=== PATIENT | female | born 1970 | race Caucasian/White ===

== ENCOUNTER 2020-09-27 10:05 | Outpatient (CLI) | payer OTHER, SELFPAY ==
--- NOTE | ~2020-09-27 | MM_ITS ---
EXAMINATION: MM screening [facility] BI w corey HISTORY: Screening mammogram TECHNIQUE: Craniocaudal and mediolateral oblique 3-D tomosynthesis images were obtained and synthetic 2-D images were generated. CAD analysis was submitted and interpreted. COMPARISON: 03/23/2016, 02/08/2015, 01/08/2012 BREAST PARENCHYMAL COMPOSITION: There are scattered areas of fibroglandular density. FINDINGS: There is no evidence of suspicious mass, calcification, or architectural distortion to sugg est malignancy in either breast. There has been no suspicious interval change. IMPRESSION: 1. No mammographic evidence of malignancy. 2. Recommend routine screening mammography in one year. BI-RADS Category 1: Negative Reviewed, dictated and finalized at location A.
== END 2020-09-27 10:06 | disposition home or self-care (01) ==
LOC: ANHIMG 10:08
PROVIDERS: PCP Internal Medicine; Visit Provider Obstetrics & Gynecology
DX: Z12.31 Encounter for screening mammogram for malignant neoplasm of breast (principal)
CPT/HCPCS: 77063; 77067

== ENCOUNTER 2022-11-28 13:43 | Outpatient (CLI) | payer OTHER, SELFPAY ==
--- NOTE | ~2022-11-28 | MM_ITS ---
EXAMINATION: MM screening [facility] w [facility] HISTORY: Screening TECHNIQUE: Craniocaudal and mediolateral oblique 3-D tomosynthesis images were obtained and synthetic 2-D images were generated. CAD analysis was submitted and interpreted. COMPARISON: Comparison to multiple prior studies sequentially, with oldest reviewed study dated 01/12. BREAST PARENCHYMAL COMPOSITION: Breast composed of scattered areas of fibroglandular density FINDINGS: There is no evidence of suspicious mass, calcification, or architectural distortion to sugg est malignancy in either breast. There has been no suspicious interval change. IMPRESSION: 1. No mammographic evidence of malignancy. 2. Recommend routine screening mammography in one year. BI-RADS Category 1: Negative Reviewed, dictated and finalized at location A.
== END 2022-11-28 13:44 | disposition home or self-care (01) ==
LOC: ANHIMG 13:46
PROVIDERS: PCP Internal Medicine; Visit Provider Nurse Practitioner Obstetrics & Gynecology
DX: Z12.31 Encounter for screening mammogram for malignant neoplasm of breast (principal)
CPT/HCPCS: 77063; 77067

== ENCOUNTER 2024-06-30 11:36 | Outpatient (CLI) | payer OTHER, SELFPAY ==
--- OUTSIDE RECORDS SUMMARY | 2024-06-30 11:43 | XMS_ITS | Clinical Summary ---
Author Organization [facility] Medical Office Building B Address [address] [place] [id number] Care Team Providers Care Bulk Plant Supervisor Name Role Phone Andrews Kent MD Primary Care Provider [phone] Andrews Kent MD Unavailable [phone] Allergies No known active allergies Medications hydroCHLOROthia zide (HYDRODIURIL) 25 mg tablet Take 1 tablet (25 mg total) by mouth daily 03/03/19 19 Active multivitamin capsule Take 1 capsule by mouth daily Active ascorbic acid, vitamin C, 125 mg tablet,chewable Take by mouth Active meloxicam (MOBIC) 15 mg tablet Take 1 tablet (15 mg total) by mouth daily Active albuterol HFA (PROVENTIL HFA,VENTOLIN HFA,PROAIR HFA) 90 mcg/actuation inhaler Inhale 2 puffs every 6 (six) hours as needed for wheezing 1 each 02/04/20 24 025 Active Additional Information Patient not taking.Reported on 06/15/2024 fosinopriL (MONOPRIL) 40 mg tablet Take 1 tablet (40 mg total) by mouth daily 05/24/19 25 Active fosinopril (MONOPRIL) 20 mg tablet Take 1 tablet (20 mg total) by mouth 3 (three) times a day 025 Discontinu ed(Therapy completed) amoxicillin (AMOXIL) 500 mg tablet/capsuleI ndications:Phar yngitis, unspecified etiology Take 1 tablet/capsule (500 mg total) by mouth 2 (two) times a day for 10 days 20 tablet/capsu le 06/16/19 25 025 Active Problems Problem Noted Date Diagnosed Date Spell of visual disturbance 05/14/2018 Encounters Date Type Department Care Team Description 06/15/2024 5:15 PM CDT Office Visit [facility] [address] [place] [address] Radha Palafox, KELSEA Sore throat (Primary Dx); Pharyngitis, unspecified etiology from Last 3 Months Surgical History Surgery Date Site/Laterality Comments CHOLECYSTECTOMY SECTION TUBAL LIGATION KNEE SURGERY Medical History Medical History Date Comments Hypertension Migraine Family History Medical History Relation Name Comments Hypertension Father Diabetes Mother Hypertension Mother Thyroid cancer Other sibling Relation Name Status Comments Father Mother Other sibling Alive Social History Tobacco Use Types Packs/Day Years Used Date Smoking Tobacco: Former Cigarettes Q uit: 02/11/2003 Smokeless Tobacco: Never Comments No Sex and Gender Information Value Date Recorded Sex Assigned at Not on file Legal Sex Female 2:59 PM CDT Gender Identity Not on file Sexual Orientation Not on file 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 file Not on file Not on file Obstetrics History Last Filed Vital Signs Vital Sign Reading Time Taken Comments Blood Pressure 130/80 06/15/2024 5:09 PM CDT Pulse 80 06/15/2024 5:09 PM CDT Temperature 36.8 C (98.2 F) 06/15/2024 5:09 PM CDT Respiratory Rate 17 06/15/2024 5:09 PM CDT Oxygen Saturation 98% 06/15/2024 5:09 PM CDT Inhaled Oxygen Concentration - - Weight 95.8 kg (211 lb 3.2 oz) 06/15/2024 5:09 P M CDT Height 160 cm (5' 3 ) 06/15/2024 5:09 PM CDT Body Mass Index 37.41 06/15/2024 5:09 PM CDT Plan of Treatment Health Maintenance Due Date Last Done Comments Breast Cancer Screening-Mammogram 1970 Cervical Cancer Screening 1970 Colon Cancer Screening-Colonoscopy 1970 Depression Screening 1970 Hepatitis C Screening 1970 DTaP/Tdap/Td Vaccine (1 - Tdap) 1981 Hepatitis B Screening 1988 Regular Well Visit/Exam 18-64 1988 Zoster Vaccine (1 of 2) 2020 Influenza Vaccine (Season Ended) 2024 Pneumococcal vaccine <65 Aged Out No longer eligible based on patient's age to complete this topic Procedures Procedure Name Priority Date/Time Associated Diagnosis Comments POCT RAPID STREP Routine 06/15/2024 5:18 PM CDT Sore throat from Last 3 Months Results * POCT rapid strep A (06/15/2024 5:18 PM CDT) Rapid Strep A, POC Negative Negative Swab 06/15/2024 5:18 PM CDT Radha Palafox NP POINT OF CARE TEST ORDERAB LES Final Result from Last 3 Months Insurance [facility] [id number] [facility] [id number] Member Subscriber Plan / Payer (Ef fective 2020-Present) Name:Brenda Johansen Member ID:[id number] Relation to Subscriber:Self Name:Brenda Johansen Subscriber ID:[id number] Payer ID:[id number] Type:[employer] HMO/PPO Address: [place] [id number] [place] [id number] Care Teams Bulk Plant Supervisor Relationship Specialty Start Date End Date Andrews Kent MD [address] [place] [address] PCP - General Internal Medicine 05/14/18 Andrews Kent MD [address] [place] [address] Internal Medicine 05/14/18
--- OUTSIDE RECORDS SUMMARY | 2024-06-30 11:43 | XMS_ITS | Continuity of Care Document ---
Author Organization [facility] Address [address] [place] [address] Phone Care Team Providers Care Needle Control Cheniller Name Role Phone CVM, CLINIC Unavailable Unavailable Allergies, Adverse Reactions, Alerts Substance Reaction Status Criticality ERYTHROMYCIN ETHYLSUCCINATE NauseaItching Active No Information Sulfa (Sulfonamide Antibiotics) HivesSwellingDifficulty breathing Active No Inf ormation HYDROCODONE BITARTRATE Nausea Active No In formation acetaminophen Nausea Active No Information Medications Medication Instructions Dosage Effective Dates (start - stop) Status Comments Unknown Herbal Supplement MV w/probiotic-- once daily - Active duloxetine 30 mg capsule,delayed release take 1 capsule by oral route every day 30 MG - Active levothyroxine 75 mcg tablet take 1 tablet by oral route every day 75 MCG - Active flaxseed oil 1,000 mg capsule take 1 capsule by oral route every day 1 capsule - Active triamcinolone acetonide 0.1 % topical cream apply by topical route 2 times every day a thin layer to the affected area(s) as needed 0.00 - Active meloxicam 15 mg tablet take 1 tablet by oral route every day 15 MG - Active famotidine 40 mg tablet take 1 tablet by oral route every day at bedtime 40 MG - Active CALTRATE 600 + D (unknown strength) take 1 tablet by mouth daily Not Available - Active betamethasone dipropionate 0.05 % topical ointment apply by topical route 2 times every day a thin layer to the affected area(s) as needed Not Available - Active amitriptyline 10 mg tablet take 1 to 2 tablet by oral route every day - Active Ambien 10 mg tablet take 1 tablet by oral route every day as needed at bedtime - Active Adderall 20 mg tablet take 1 tablet by oral route 3 times every day - Active Procedures Procedure Date NUC-Cardiolite/Per Dose Nuc-Perf Scan, Mult, W/EF & WM 24 IO-Stress Supervision, Office Stress Tracing Only IO-Stress Intepretation, Office 024 Echo, 2D Complete CTA, W/o Contrast, Calcium Scoring, Tech nical CTA, W/o Contrast, Calcium Scoring, Inte rp EKG With Interp And Report New Pt Office Visit Level 4 ACP Disc And Doc, Surrogate Documented O No Charge No Show Fee-New Patient IO-Stress Interpretation, Hospital IO-Stress Supervision, Hospital 021 IO-Stress Interpretation, Hospital IO-Stress Supervision, Hospital 018 IO-Stress Interpretation, Hospital IO-Stress Supervision, Hospital 013 Advance Directives Directive Yes / No Effective Date File Name No Information Encounters Encounter Description Practice Location Reason(s) For Visit Diagnoses Date Provider Providers Copied on Encounter [facility], [address], [place], [address], [place] tel:[phone] DX Hallie CVM Precordial painFamily history of ischemic heart disease and other diseases of the circulatory systemGastro -esophageal reflux disease without esophagitis CVM CLINIC. [facility]. Referring Provider: Andres Krishnamurthy, [facility] [address], [address]. tel:[phone] [facility], [address], [place], [address], [place] tel:[phone] DX Cardenas CVM Precordial painFamily history of ischemic heart disease and other diseases of the circulatory systemEncoun ter for screening for lipoid disordersHyp othyroidism, unspecified 4 Eduard Campos. [facility], [address], [place], [place], [id number], [place]. tel:[phone] Referring Provider: Andres Krishnamurthy, [facility] [address], [place], [address]. tel:[phone] [facility], [address], [place], [address], [place] tel:[phone] DX Hallie CVM Family history of ischemic heart disease and other diseases of the circulatory systemTobacc o use 4 Reinier Royal. [facility], [address], [place], [place], [id number], [place]. tel:[phone] Referring Provider: Andres Krishnamurthy, [facility] [address], [place], [address]. tel:[phone] [facility], [address], [place], [address], [place] tel:[phone] DX Center CVM No Information 4 Laura Ellison. [facility], [address], [place], [place], [id number], [place]. tel:[phone] Referring Provider: Andres Krishnamurthy, [facility] [address], [place], [address]. tel:[phone] New Pt Office Visit Level 4 [facility], [address], [place], [address], [place] tel:[phone] Cardenas CVM cardiovascul ar evaluation (chief complaint) Precordial chest painFamily history of premature coronary artery diseaseLipid screeningTob acco useGERD without esophagitisH ypothyroidis m 4 Eduard Campos. [facility], [address], [place], [place], [id number], [place]. tel:[phone] Referring Provider: Keisha Clemente, [address] [place], [address]. tel:[phone] [facility], [address], [place], [address], [place] tel:[phone] Cardenas CVM No Information 4 Eduard Campos. [facility], [address], [place], [place], [id number], [place]. tel:[phone] Referring Provider: Keisha Clemente, [address] [place], [address]. tel:[phone] [facility], [address], [place], [address], [place] tel:[phone] Cardenas CVM No Information 4 Eduard Campos. [facility], [address], [place], [place], [id number], [place]. tel:[phone] [facility], [address], [place], [address], [place] tel:[phone] Cardenas CVM No Information 1 Floyd Villarreal. [facility], [address], [place], [place], [id number], [place]. tel:[phone] Referring Provider: Elizabeth Vasquez, [facility] [address] [place] [address], [address]. tel:[phone] [facility], [address], [place], [address], [place] tel:[phone] Center CVM No Information 8 Pilo Alba. [facility], [address], [place], [place], [id number], [place]. tel:[phone] Referring Provider: Elizabeth Vasquez, [facility] [address] [place] [address], [address]. tel:[phone] [facility], [address], [place], [address], [place] tel:[phone] Center CVM No Information 3 Floyd Villarreal. [facility], [address], [place], [place], [id number], [place]. tel:[phone] Referring Provider: Elizabeth Vasquez, [facility] [address] [place] [address], [address]. tel:[phone] [facility], [address] [facility], [place], [address], [place] tel:[phone] Center CVM No Information 3 Quinton Sarkar. [facility] , [address], [place], [place], [id number], [place]. tel:[phone] Referring Provider: Elizabeth Vasquez, [facility] [address] [place] [address], [address]. tel:[phone] Family History Family Member Type Diagnosis Age At Onset Father Problem Depression Mother Problem Hypertension Mother Problem Coronary artery disease Father Problem Hypertension Father Problem Diabetes mellitus Payers Payer name Insurance type Covered constitution party ID Authorbrandona jayna(s) [facility] [id number] Social History Type Description Quantity Date Captured Comments Sex Female Smoking Status No Information Chief Complaint And Reason For Visit No Information Reason For Referral Reason For Referral No Information Plan Of Treatment Date Type Action Status Future Order: Radiology Order Nu clear Stress One Day ([place]), Appointment on: , Collected on: Ordered Future Order: Radiology Order Ec ho Complete ([place]), Appointment on: , Collected on: Ordered Future Order: Radiology Order CT Calcium Score ([place]), Appointment on: , Collected on: Ordered History Of Present Illness Encounter Date Complaint History Of Prese nt Illness cardiovascular evaluation Her Gr andmother of an NE in her late 40s. Her father had a fib. Her Mother has had a long history of heart disease. Her Brother had heart disease in his 40s. 2 months ago, while sitting at her desk, under stress at her desk, she developed a sharp left sided chest discomfort followed by some tingling. It lasted 10 seconds than it resolved. She had some dyspnea and sweats, but no nausea. She has had no significant chest discomfort since then. She denies exertional chest discomfort but has some dyspnea with exertion. She denies palpitations. She has occasional dizziness but denies syncope. She denies HTN, diabetes or hyperlipidemia. She quit smoking 5 years ago. She drinks alcohol occasionally. She lives in [place], [place]. She is a therapeutic recreation specialist in the area. She is single with 2 children. Functional Status Date Functional Assessmen t No Information Instructions Date Instruction Additional Sonnyr emiliano PCP Wellness Visit Assessments Type Assessment Date No Information Patient Care Teams Name Effective Dates (start - stop) Status Members No Information
--- OUTSIDE RECORDS SUMMARY | 2024-06-30 11:43 | XMS_ITS | Continuity of Care Document ---
Author Organization [facility] Address [address] [place] [id number] Phone Care Team Providers Care Gamb Cutter Name Role Phone Ivana ODZIER, Lidia Unavailable Unavailable Allergies, Adverse Reactions, Alerts Substance Reaction Status Criticality Sulfa (Sulfonamide Antibiotics) Active No Information Medications Medication Instructions Dosage Effective Dates (start - stop) Status Comments levothyroxine 100 mcg tablet take 1 tablet by oral route every day 100 MCG - Active Adderall 20 mg tablet take 1 tablet by o ral route 3 times every day before breakfast and at noon 20 MG - Active zolpidem 5 mg tablet take 1 Tablet by or al route every day at bedtime 1 Tablet - Active amitriptyline 10 mg tablet take 1 tablet by oral route 2 times every bedtime 10 MG - Active omeprazole 20 mg capsule,delayed release take 1 capsule by oral route every day before a meal as needed 20 MG - Active Procedures Procedure Date ROUTINE VENIPUNCTURE OFFICE/OUTPATIENT VISIT, NEW DNA ANTIBODY DNA ANTIBODY, SINGLE STRAND NUCLEAR ANTIGEN ANTIBODY RBC SED RATE, NONAUTOMATED ASSAY OF CK (CPK) RHEUMATOID FACTOR, QUANT IMMUNOASSAY, NONANTIBODY CARDIOLIPIN ANTIBODY Advance Directives Directive Yes / No Effective Date File Name No Information Encounters Encounter Description Practice Location Reason(s) For Visit Diagnoses Date Provider Providers Copied on Encounter [facility], [address] [place] [address], [id number], [place] tel:[phone] [facility] New No Information Ivana Murillo. [address] [place] [address], [id number], [place]. tel:[phone] OFFICE/OUTPA TIENT VISIT, NEW [facility], [address] [place] [address], [id number], [place] tel:[phone] [facility] Fibromyalgia syndrome (chief complaint) Fibromyalgia FatigueBody mass index (BMI) 34.0-34.9, adultNicotin e dependence, cigarettes, uncomplicate dSicca syndrome, unspecified 8 Geneva Angle. [address], [place], [id number], [place]. tel:[phone] Referring Provider: [facility] [address] [place] [address], [id number]. tel:[phone] Family History Family Member Type Diagnosis Age At Onset Father Problem (finding) depression Mother Problem (finding) hypertension Father Problem (finding) diabetes melli tus in first degree relative Mother Problem (finding) seizure disorder Brother Problem (finding) Heart disease (Cause Of ) Father Problem (finding) Alive and well Maternal aunt Problem (finding) Heart disease Brother Problem (finding) Drugs (Cause Of ) Maternal aunt Problem (finding) fibromyalgia Brother Problem (finding) Starting to have COPD Daughter Problem (finding) Alive and well Mother Problem (finding) Heart disease Cousin Problem (finding) fibromyalgia Maternal aunt Problem (finding) Alive and well Son Problem (finding) attention defi cit hyperactivity disorder Father Problem (finding) raised blood lipids Paternal grandfather Problem (finding) malignant neoplasm of lung (Cause Of ) Maternal grandmother Problem (finding) Myocardial infa rction Payers Payer name Insurance type Covered libertarian ID Authoriza ticinthia(s) [facility] 12 [id number] Social History Type Description Quantity Date Captured Comments Alcohol Use Details Unknown Caffeine Use Details Unknown Tobacco Use Status Smoking Status No Information Sex Female Chief Complaint And Reason For Visit No Information Reason For Referral Reason For Referral No Information Plan Of Treatment Date Type Action Status Goal Dietary management education , guidance, and counseling completed Referral Referred To: Physical Therapy Ordered: Referrals: Physical Therapy. Evaluate and treat ordered History Of Present Illness Encounter Date Complaint History Of Prese nt Illness Fibromyalgia syndrome The sympto ms began 2 years ago. Pt states fuzzy head, pain points, achiness all the time ~ everywhere, sharp, stabbing pain. No previous treatment. Functional Status Date Functional Assessmen t No Information Instructions Date Instruction Additional Infor emiliano Written information provided on fibromyalgia from the ACR. The natural course of this diagnosis was reviewed. Conservative measures were focused on and include regular exercise, healthy diet and stress reduction. I suggested a referral to PT. Cognitive behavioral therapy may also be beneficial. I suggested visiting the website rheumatology.org as a reference for self management techniques and patient education. Fibromyalgia can be primary or secondary in nature and given report of dry mouth/dry eyes, fatigue and pain, further diagnostic testing will be obtained. She is currently managed with amitriptyline and takes Adderall and zolpidem for chronic insomnia and narcolepsy. Medications for fibromyalgia including lyrica, savella, cymbalta,gabapentin, etc. Narcotics are not recommended.She will RETURN TO CLINIC in 4 weeks but call a few days before the appointment for labs results. If negative, may cancel appointment. Related to Fibromyalgia Dietary management e ducation, guidance, and counseling Related to Body mass index (BMI) 34.0-34.9, adult Assessments Type Assessment Date No Information Patient Care Teams Name Effective Dates (start - stop) Status Members No Information
--- OUTSIDE RECORDS SUMMARY | 2024-06-30 11:43 | XMS_ITS | Continuity of Care Document ---
Author Organization [facility] Address [address] [place] [phone] Phone Care Team Providers Care Nutrition Services Aide Name Role Phone Clau Santiago Unavailable Unavailable Allergies, Adverse Reactions, Alerts Substance Reaction Status Criticality ERYTHROMYCIN ETHYLSUCCINATE Active No Information Sulfa (Sulfonamide Antibiotics) Active No Information HYDROCODONE BITARTRATE Active No In formation acetaminophen Active No Information Medications Medication Instructions Dosage Effective Dates (start - stop) Status Comments cephalexin 250 mg capsule take 250 milligram by oral route post coital - Active patient will call when needed cephalexin 250 mg capsule take 1 capsule by oral route every 24 hours - Active IMPOYZ (unknown strength) Not Available - Active CANELO MAG ZINC-D (unknown strength) Not Available - Active FLAXSEED OIL (unknown strength) Not Available - Active ADDERALL (unknown strength) Not Available - Active DRIZALMA SPRINKLE (unknown strength) Not Available - Active AMITRIPTYLINE HCL (unknown strength) Not Available - Active FAMOTIDINE (unknown strength) Not Available - Active LEVOTHYROXINE SODIUM (unknown strength) Not Available - Active BIOTIN (unknown strength) Not Available - Active MELOXICAM (unknown strength) Not Available - Active AMBIEN (unknown strength) Not Available - Active CALTRATE 600+D PLUS (unknown strength) Not Available - No Longer Active BETAMETHASONE DIPROPIONATE (unknown strength) Not Available - No Longer Active Procedures Procedure Date OV - Established Patient OV - New Patient Urinalysis - Automated Offic/outpt E&m Estab Low-mod 6 Ua Dip Stick/tablet; Auto W/mi 06 Offic/outpt E&m Estab Low-mod 5 Ua Dip Stick/tablet; Auto W/mi 05 Offic Cons New/estab Mod-hi 60 05 Cystourethroscopy (separt Proc 05 Ua Dip Stick/tablet; Auto W/mi 05 Advance Directives Directive Yes / No Effective Date File Name No Information Encounters Encounter Description Practice Location Reason(s) For Visit Diagnoses Date Provider Providers Copied on Encounter OV - Established Patient [facility], [address] [place] [address], [id number], [place] tel:[phone] [facility] Personal history of urinary (tract) infections 5 Jeffy Olguin. [address] [place] [address], [id number] , [place]. tel:[phone] Referring Provider: Garrison Hanks, [address] [place] [address], [id number]. tel:[phone] OV - New Patient [facility] , [address] [place] [address], [id number], [place] tel:[phone] [facility] Urinary tract infection, site not specifiedFrequenc y of micturition 4 Sis Julien. [address] [place] [address], [id number] , [place]. tel:[phone] Referring Provider: Garrison Hanks, [address] [place] [address], [id number]. tel:[phone] [facility] , [address] [place] [address], [id number], [place] tel:[phone] [facility] No Information 4 Walter Candelario. [address] [place] [address], [id number] , [place]. tel:[phone] Offic/outpt E&m Estab Low-mod [facility] , [address] [place] [address], [id number], tel:[phone] [facility] No Information [facility]. [address] [place] [address], [id number] , . tel:[phone] Offic/outpt E&m Estab Low-mod [facility] , [address] [place] [address], [id number], tel:[phone] [facility] No Information [facility]. [address] [place] [address], [id number] , [place]. tel:[phone] Offic Cons New/estab Mod-hi 60 [facility] , [address] [place] [address], [id number], tel:[phone] [facility] No Information [facility] Kristoferasoub. [address] [place] [address], [id number] , . [phone] Referring Provider: Per Clemente, [address] [place], [address]. tel:[phone] Family History Family Member Type Diagnosis Age At Onset No Information Payers Payer name Insurance type Covered republican ID Dieter dorantes(s) [facility] [id number] Social History Type Description Quantity Date Captured Comments Alcohol Use Details No Caffeine Use Details Unknown Tobacco Use Status No Information Smoking Status Former smoker Non-Smoking Tobacco Use Details : No Details Available : No Details Available Sex Female Vital Signs Date / Time: Height Weight BMI Pulse Rate Blood Pressure Temperature Respiratory Rate Body Surface Area Head Circumference Head Circ. Percentile Wt./Jeffery. Percentile BMI percentile Pulse Ox Inhaled Ox 1:25 PM 93.180 kg (205.00 lbs) 31.2 0 kg/m eter (2) Chief Complaint And Reason For Visit No Information Reason For Referral Reason For Referral No Information History Of Present Illness Encounter Date Complaint History Of Prese nt Illness No Information Functional Status Date Functional Assessmen t No Information Instructions Date Instruction Additional Infor mation No Information Assessments Type Assessment Date No Information Patient Care Teams Name Effective Dates (start - stop) Status Members No Information
--- OUTSIDE RECORDS SUMMARY | 2024-06-30 11:43 | XMS_ITS | Data Portability ---
Author Organization [facility] Address [address] [address] Care Team Providers Care Rn Med Surg Name Role Phone GHAZALA BUCHANAN Primary Care Provider Assessment Encounter Date Assessment Date Assessment LastModified by Organization Details LastModified Time 08/24/2020 08/24/2020 healthy female exam patient declines std testing pap done, discussed guidelines mammogram ordered and strongly encouraged contraception-tu bal FU 1 year or prn [email or web address] Not available 08/24/2020 14:15:11 11/15/2022 11/15/2022 Annual gynecological exam performed. Patient will come back in a year unless there are new symptoms. Not available 11/15/2022 14:06:35 04/20/2024 04/20/2024 Annual gynecological exam performed. Patient will come back in a year unless there are new symptoms. [email or web address] Not available 04/20/2024 09:17:43 Plan of Treatment Reminders Order Date Submit Date Provider Last Modified By Organization Details Last Modified Time Details Appointments SURG Hysterosc opy 2024 10:00A Cheo CESPEDES MD Not available Not available Not available Lab None recorded. Referral None recorded. Procedures None recorded. Surgeries hysterosc opy, surgical, with biopsy of endometri um and/or polypecto my (SURG) 2024 025 [id number] [id number] [address], [place], [address], 06/10/2024 15:24:19 Imaging US, pelvis 2024 025 [email or web address], [address], [place], [address], 05/04/2024 22:01:02 US, transvagi nal 2024 025 [email or web address], [address], [place], [address], 05/04/2024 22:01:02 MAMMO, screening , digital, bilateral [email or web address] [facility], [address], [place], [address], 05/05/2024 15:38:59 MAMMO, screening , digital, bilateral [address], [address], [place], [address], 11/15/2022 15:13:45 Medication Orders None recorded. Patient TargetsNo targets recorded. Patient InstructionsNo instructions recorded. Reason for Referral None Reported. Results Created Date Observation Date Name Description Value Unit Range Abnormal Flag Note LastModifiedBy Organization Detail LastModifiedTime 08/25/19 21 08/24/2020 IMAGE GUIDE D PAP AND HPV REGAR DLESS image guided Pap, HPV regardless of Pap result SEE RESULT S BELOW CASE REPOR T: Cytol ogy Gynec ologi chandrika Repor t Case: [id number] Autho jose g g Provi parrish: Lara Acevedo MD Colle cted: 08/24 1423 Order ing Locat ion: [place] Patho logy Recei rosana: 08/25 0046 First Scree n: Jamaal Clemons, CT Speci men: Scree belem Pap - Image d, Cervi x STATE MENT OF ADEQU ACY: Satis facto ry for evalu ation Trans forma tion zone compo nent absen t FINAL DIAGN OSIS: Negat dwaine for Intra epith elial Lesio n or Malig marco a Elect ronic ally karina d by Jamaal Clemons CT on 2020 at 11:36 AM ----- ----- ----- ----- ----- ----- ----- ----- ----- ----- ----- ----- ----- ----- ----- ----- ----- ---- HPV RESUL TS: HPV mRNA E6/E7 : No HPV mRNA Detec michael NOTE: This high risk HPV mRNA assay detec ts fourt een high- risk HPV types (16, 18, 31, 33, 35, 39, 45, 51, 52, 56, 58, 59, 66, 68) witho ut diffe renti ation . CHART ABLE COMME NT: Note: This speci men was revie wed by a Cytot echno logis t and/o r Patho logis t (as indic ated in this repor t) after evalu ation using the Thinp rep Imagi ng Syste m. CLINI CHANDRIKA INFOR MATIO N: Menst rual Statu s: LMP (if appli cable ): 021 Clini chandrika Histo ry/Pr eviou s Pap: Type of Neopl maira (if appli cable ): Other Histo ry: Hormo aron (if appli cable ): PAP EDUCA JAYJAY L NOTE: The Pap Test is a scree belem test with an inher ent false negat dwaine rate. Liqui d-bas e sampl ing may decre ase, but will not elimi evelyn, false negat dwaine resul ts. A negat dwaine resul t does not precl ude the prese nce and/o r devel opmen t of disea se, since the prese nce of abnor mal cells in the sampl e depen ds on the locat ion of the lesio n and sampl ing techn ique. Davey nued regul ar scree belem is the best metho d of cance r preve ntion . If repor michael cytol ogic findi ng do not corre late with physi chandrika and/o r histo rical findi ngs, fur er inves tigat ion is recom thania d, as clini ines martinez nted. Not Available [facility] (Lab) [address], [place], [address], 08/26/2020 12:39:43 04/21/19 25 04/20/2024 IMAGE GUIDE D PAP AND HPV REGAR DLESS image guided Pap, HPV regardless of Pap result SEE RESULT S BELOW CASE REPOR T: Cytol ogy Gynec ologi chandrika Repor t Case: [id number] Autho ramsessonny oanh Provi parrish: Natasha Hills, KELSEA Colle cted: 04/20 1019 Order ing Locat ion: [place] Patho logy Recei rosana: 04/21 0113 First Ly n: Melchor Zelaya, CT Patho logis t: Karri Real MD Speci men: Ly verag Pap - Image d, Cervi x STATE MENT OF ADEQU ACY: Satis facto ry for evalu ation Trans forma tion zone compo nent absen t ----- ----- ----- ----- ----- ----- ----- ----- ----- ----- ----- ----- ----- ----- ----- ----- ----- ---- FINAL DIAGN OSIS: Negat dwaine for Intra epith elireji dennis or Terra strickland ([facility]) . Endom etnaomy jasso nt. Elect charlotte fraire by Karri gibbs MD on 2024 at 1315 CDT ----- ----- ----- ----- ----- ----- ----- ----- ----- ----- ----- ----- ----- ----- ----- ----- ----- ---- HPV RESUL TS: HPV mRNA E6/E7 : No HPV mRNA Detec michael NOTE: This high risk HPV mRNA assay detec ts fourt een high- risk HPV types (16, 18, 31, 33, 35, 39, 45, 51, 52, 56, 58, 59, 66, 68) witho ut diffe renti ation . COMME NT: This speci men was revie wed by a Cytot echno logis t and/o r Patho logis t (as indic ated in this repor t) after evalu ation using the Thinp rep Imagi ng Syste m. CLINI CHANDRIKA INFOR MATIO N: Menst rual Statu s: LMP (if appli cable ): Clini chandrika Histo ry/Pr eviou s Pap: Type of Neopl maira (if appli cable ): Signi fican t Clini chandrika Findi ngs: Other Histo ry: Hormo aron (if appli cable ): PAP EDUCA JAYJAY L NOTE: The Pap Test is a scree belem test with an inher ent false negat dwaine rate. Liqui d-bas ed sampl ing may decre ase, but will not elimi evelyn, false negat dwaine resul ts. A negat dwaine resul t does not precl ude the prese nce and/o r devel opmen t of disea se, since the prese nce of abnor mal cells in the sampl e depen ds on the locat ion of the lesio n and sampl ing techn ique. Davey nued regul ar scree belem is the best metho d of cance r preve ntion . If repor michael cytol ogic findi ng do not corre late with physi chandrika and/o r histo rical findi ngs, furth er inves tigat ion is recom thania d, as clini ines martinez nted. Not Available [facility] (Lab) [address], [place], [address], 04/23/2024 14:19:49 09/28/19 21 09/27/2020 MAMMO , scree belem, bilat eral No observ ation record ed. [address], [place], [address], 11/15/2022 15:11:40 05/05/19 25 05/04/2024 US, pelvi s No observ ation record ed. [email or web address], [place], [address], 05/04/2024 16:13:25 05/05/19 25 05/04/2024 US, trans vagin al No observ ation record ed. [email or web address] [address] [address], [place], [address], 05/04/2024 16:13:34 05/05/19 25 05/04/2024 US, pelvi s No observ ation record ed. [email or web address], [place], [address], 05/06/2024 18:54:23 Result Notes None recorded. Problems Name Problem SNOMED Code Status Onset Date Resolution Date Notes Provider Name and Address Organization Details Recorded Time Hypertensive disorder 33735347 Active 2020 Lara Becker MD [address], [place], [address], [place] [facility] 14:13:22 Body mass index 30+ - obesity 584433966 Active 2020 Lara Becker MD [address], [place], [address], [facility] 14:13:29 Problem Notes None recorded. Procedures Surgical History Date Name Laterality Status Provider Name and Address Organization Details Recorded Time 04/21/19 25 Date of Last Pap Smear completed Alee Cornejo [facility] 05/25/2024 12:42:46 11/12/19 23 Date of Last Mammogram completed Ness Segovia [facility] 04/20/2024 09:27:41 02/11/18 97 Tubal Ligation completed Obdulia Elkins [facility] 08/24/2020 09:36:52 02/11/18 96 Cholecystectomy completed [facility] 08/24/2020 09:36:43 02/11/18 95 delivery completed [facility] 08/24/2020 09:36:33 02/11/18 92 delivery completed [facility] 08/24/2020 09:36:23 Imaging Results Imaging Date Name Status LastModified by Organization Details LastModified Time 09/27/2020 MAMMO, screening, bilateral completed [address], [place], [address], 11/15/2022 15:11:40 05/04/2024 US, pelvis completed [email or web address] [address], [place], [address], 05/04/2024 16:13:25 05/04/2024 [email or web address] [address], [place], [address], 05/04/2024 16:13:34 05/04/2024 US, pelvis completed [email or web address] [address], [place], [address], 05/06/2024 18:54:23 Procedure Notes None recorded. Medical Equipment None Reported. Allergies No known drug allergies Medications Name Sig Start Date Stop Date Status Note LastModified by Organization Details LastModified Time benzonatate 200 mg capsule 04/20 completed Not Available Not Available Not Available meloxicam 15 mg tablet TAKE 1 TABLET BY MOUTH EVERY DAY WITH FOOD 08/24 completed Not Available Not Available Not Available fosinopril 20 mg tablet TAKE 2 TABLETS BY MOUTH EVERY DAY 11/15 completed Not Available Not Available Not Available meloxicam 7.5 mg tablet TAKE 1 TABLET BY MOUTH DAILY NEEDED FOR MILD OR MORE SEVERE PAIN. 04/20 completed Not Available Not Available Not Available amoxicillin 875 mg tablet TAKE 1 TABLET BY MOUTH TWICE A DAY FOR 10 DAYS 11/15 completed Not Available Not Available Not Available fosinopril 40 mg tablet TAKE 1 TABLET BY MOUTH EVERY DAY active Not Available Not Available No t Available diclofenac sodium 75 mg tablet,delay ed release TAKE 1 TABLET BY MOUTH EVERY DAY 11/15 completed Not Available Not Available Not Available hydrochlorot hiazide 25 mg tablet TAKE 1 TABLET BY MOUTH EVERY DAY active Not Available Not Available No t Available methylpredni solone 4 mg tablets in a dose pack 04/20 completed Not Available Not Available Not Available albuterol sulfate HFA 90 mcg/actuatio n aerosol inhaler 04/20 completed Not Available Not Available Not Available Vitamin C active Not Available Not Salena ilable Not Available Vitals Date Recorded Body height Systolic blood pressure Diastolic blood pressure Systolic blood pressure Diastolic blood pressure Provider Name and Address Organization Details Last Updated DateTime 162.56 cm 148 mm[Hg] 108 mm[Hg] 138 mm[Hg] 80 mm[Hg] Obdulia Elkins [facility] 11:02:33 Date Recorded Body mass index (BMI) Body weight Provider Name and Address Organization Details Last Updated DateTime 08/24/2020 39.8 kg/m2 868513.43 g Lara Becker MD [address], [place], [address], [facility] 08/24/2020 14:12:57 Date Recorded Body height Body mass index (BMI) Body weight Provider Name and Address Organization Details Last Updated DateTime 11/15/2022 162.56 cm 39.1 kg/m2 414267.06 g Alee Cornejo [facility] 11/15/2022 14:06:48 Date Recorded Systolic blood pressure Diastolic blood pressure Provider Name and Address Organization Details Last Updated DateTime 11/15/2022 130 mm[Hg] 74 mm[Hg] Elizabeth Foote [facility]- [address], [place], [address], [facility] 11/15/2022 15:10:55 Date Recorded Body height Body mass index (BMI) Body weight Systolic blood pressure Diastolic blood pressure Provider Name and Address Organization Details Last Updated DateTime 04/20/2024 162.56 cm 36 kg/m2 59358.96 g 156 mm[Hg] 85 mm[Hg] Ness Segovia [facility] 09:25:16 Date Recorded Body height Body mass index (BMI) Body weight Systolic blood pressure Diastolic blood pressure Provider Name and Address Organization Details Last Updated DateTime 05/25/2024 162.56 cm 36.9 kg/m2 73154.36 g 152 mm[Hg] 82 mm[Hg] Alee Cornejo [facility] 5 12:42:27 Social History Question Answer Notes LastModified by [employer] Details LastModified Time Tobacco Smoking Status Never Smoker Obdulia Elkins indu, [facility] 08/24/2020 10:54:31 In The 14 Days Before Symptom Onset, Have You Had Close Contact With A Laboratory-confirm ed COVID-19 While That Case Was Ill? No Information n ot available 11/15/2022 In The 14 Days Before Symptom Onset, Have You Had Close Contact With A Person Who Is Under Investigation For COVID-19 While That Person Was Ill? No Information not available 11/15/2022 Have You Been To An Area Known To Be High Risk For COVID-19? No Information not available 11/15/2022 Have You Ever Been Counseled For Unhealthy Alcohol Use? No Information not available 08/24/2020 Has Tobacco Cessation Counseling Been Provided? No Information not available 08/24/2020 Sex: Unknown Functional Status Question Answer Note LastModified by [employer] Details LastModified Time Do you use any illicit or recreational drugs? No Information not available 08/24/2020 Do you or have you ever used any other forms of tobacco or nicotine? No Information not available 08/24/2020 What is your level of alcohol consumption? Occasional Information not available 08/24/2020 Mental Status None recorded. Family History Relationship Description Onset Age of this Age Resolved Age Notes LastModified by Organization Details LastModified Time Father No current problems or disability Not available 05/25 12:43:05 Mother No current problems or disability Not available 05/25 12:43:05 Medical History Condition Response Allergies (Food, seasonal, environmental ) N Other N Breast Cancer N Drug/Latex Allergies/Reactions N Blood Transfusion N Dermatologic Disorders N Lung Disease N Defects or Inherited Disease N Breast Problem N Gestational Diabetes N Hematologic disorders N Anesthesia Complications N History of STI N Deep Vein Thrombosis N Polycystic ovary syndrome N Anxiety Disorder N Autoimmune disease N Arthritis N Infertility N Polyps N Acid Reflux (GERD) N History of abnormal pap N Cancer N Stroke N Varicosities N Neurologic/Epilepsy N Endometriosis N High Cholesterol N Headaches N Fibromyalgia N Kidney Disease N Heart Problems N Kidney or Bladder Problems N Thyroid Problems N GI Problems N Eating Disorder N Anemia N Art (IVF or FET) N Psychiatric Illness N Ovarian Cancer N Diabetes N Pulmonary (TB, Asthma) N Hepatitis/Liver Disease N No Past Medical History N Eczema N Urinary Tract Infection N Abuse/Domestic Violence N Asthma N Trauma/Violence N Depression/ depression N Heart Disease N Pre-Eclampsia N Hypertension Y Osteoporosis N Thrombophilias N Gynecological History Statement/Question Response Abnormal Pap N Date of Last Mammogram 11/11/2022 Date of LMP 04/13/2024 STIs/STDs N HPV Vaccine N Duration of Flow (days) 5 Current Control Method Tubal Ligat ion Date of Last Colonoscopy Sexually Active? Y Menses Monthly N Date of Last Pap Smear 04/20/2024 Sexual Problems? N LMP Approximate Obstetrics History GPAL:G 2 P 2 0 0 2 Type Value Full Term 2 Living 2 Total 2 Past Encounters Encounter ID Performer Location Encounter Start Date Encounter Closed Date Diagnosis/Indication Diagnosis SNOMED-CT Code Diagnosis ICD10 Code Diagnosis Note [id number] Lara Becker MD [facility] [address] [address] 08/24/2020 10:45:48 08/25/2020 14:07:46 Gynecologic examination 53050706 Z01.419 Z11.51 [id number] [facility] [address] [address] 11/15/2022 13:57:09 11/15/2022 15:13:45 Gynecologic examination 77633396 Z01.419 Take Calcium with Vitamin D 12-1500mg daily. Do monthly self breast exams. It is advised to get annual flu shot in the fall and she could obtain at [facility] or [facility] care clinic. If you haven't received the Tdap vaccine in the last 10 years you should obtain one as well. Have mammogram yearly, bone density every 2-3 years and colonoscop y every 5-10 years depending on findings and history. Engage in daily exercise of low impact aerobic exercise 45-60 minutes 4-5 times weekly. Avoid tobacco and illicit drugs as well as using moderation with alcohol intake less than 1-2 8 oz beverages daily. This lifestyle behavior pattern will lead to less health conditions and longer life span. If BMI greater than 25 weight watchers or dietary consult advised. Questions have been answered. Patient appears to understand instructio ns, but if you have any further questions call or respond to this email Pap/hpv arlin 2023 unless otherwise indicatedS TD Screen declinedGe netic Screen discussedC olon Screen utd pcpDexa Screen naRoutine Labs utd pcp Screening mammography 24 373576 Z12.31 [id number] YFN Navarro [facility] [address] [address] 04/20/2024 09:10:17 04/20/2024 09:47:14 Gynecologic examination 86227674 Z01.419 WWEPap - done todaySTI screen - declinedMa mmogram - order givenColon cancer screening - cologuard 2023/UTDDe xa - n/aRoutine labs - PCPBP precaution s discussed, encouraged PCP f/uRTC in 1 yr or sooner if needed Do monthly self breast exams.It is advised to get annual flu shot in the fall and she could obtain at local pharmacy. If you haven't received the Tdap vaccine in the last 10 years you should obtain one as well.Have mammogram yearly, bone density every 2-3 years and stay up to date on colon cancer screening. Engage in regular exercise. Avoid tobacco and illicit drugs. This lifestyle behavior pattern will lead to less health conditions and longer life span. If BMI greater than 25 dietary consult advised.Qu estions have been answered. Screening for malignant neoplasm of breast 221407014 Z12.39 [id number] Navid Cespedes MD [facility] [address] [address] 05/04/2024 09:53:18 05/04/2024 10:48:21 Irregular periods 32033626 N92.6 [id number] Navid Cespedes MD [facility] [address] [address] 05/25/2024 12:25:10 05/25/2024 13:07:22 Abnormal uterine bleeding 5349979697 9100 N93.9 Endometrial polyp 692923 1091 N84.0 patient is a 53-year-ol d female with abnormal uterine bleeding. She is irregularl y irregular bleeding it varies in amounts. She was evaluated with pelvic ultrasound . She has a endometria l polyp. We talked about treatment options in the evaluation of endometria l polyp and abnormal bleeding. We agreed to perform hysterosco py D and C with possible polypectom y. The patient understand s the procedure. The procedure was described to the patient in great detail. the patient also understand s the risks. The risks were also explained in detail. She understand s that injuries May occur during surgery. She understand s these injuries can result in hospitaliz ation, more surgery, and severe illness. She understand s there is risk of hemorrhage and infection. Health Concerns Section Related Observation LastModified by Organization Detai ls LastModified Time None Recorded Concern Status LastModified by Organization Details LastModified Time None Recorded Advance Directives Directive None Recorded Payers Encounter Date Sequence Insurance Name Policy Number Policy Parrish Covered Member ID Parrish Member ID Guarantor Name 08/24/2020 1 [employer] - DOS PRIOR TO 20 - [facility] [employer] [id number] [id number] [address] 11/15/2022 1 [employer] - [facility] [employer] [id number] [id number] [address] 04/20/2024 1 [employer] [facility] [employer] [id number] [id number] [address] 05/04/2024 1 [employer] [facility] [employer] [id number] [id number] [address] 05/25/2024 1 [employer] [facility] [employer] [id number] [id number] [address] Notes Date Note Type Note Provider Name and Address Organization Details Recorded Time 1 text/htm l Patient is a 49yo who presents for an annual exam. last pap-2017, all normal mammogram- 2017 sexually active-y contraception-tubal seatbelts-y exercise-some depression-denies domestic violence-denies tobacco-n concerns-none Lara Becker MD [address], [place], [address], [facility] 08/24/2020 14:15:32 3 text/htm l Annual Dip Filler Post-MenopausalReported bypatient.Menopausal Symptoms:no menopausal symptoms; normal vaginal lubrication Vaginal Bleeding:history of menopause having occurred; no history of post menopausal bleeding Urinary Symptoms:no hematuria; no incontinence; no nocturia; no urinary frequency Vulva:no genital lesion; no vulvar atrophy Vagina:normal vaginal discharge; no vaginal atrophy Breast:no breast lump; no nipple discharge; no breast pain Sexual Complaints:no sexual complaints Psychological Symptoms:no depression; no anxiety Preventive Measures:encourage regular mammograms starting age 40; encourage self breast examination; encourage regular exercise; encourage no tobacco use; needs to schedule mammogram; history of recent colonoscopy YFN Masterson- [address], [place], [address], [facility] 11/15/2022 15:13:22 5 text/htm l Annual GYNReported bypatient.Menstrual cycle:Perimenopausal Urinary symptoms:No hematuria; No incontinence Vulva:No genital lesion Vagina:Normal vaginal discharge Breast:No breast pain; No breast lump; No nipple discharge Sexual complaints:No sexual complaints; No pain during intercourse; Normal libido Menopausal Symptoms:No menopausal symptoms; Normal vaginal lubrication Psychological symptoms:No depression; No anxiety; No PMDD Preventive measures:Encourage self breast examination; Encourage regular exercise; Encourage no tobacco use; Encourage regular mammograms starting age 40Notes:53yo wweno h/o abnormal papsperimenopausallast pap 2020 - nilm, HPV (-)mammogram last ologuard done 2023 YFN Navarro [address], [place], [address], [facility] 04/20/2024 09:45:58 5 text/htm l patient is a 53-year-old female with abnormal uterine bleeding. She is irregularly irregular bleeding it varies in amounts. She was evaluated with pelvic ultrasound. She has a endometrial polyp. We talked about treatment options in the evaluation of endometrial polyp and abnormal bleeding. We agreed to perform hysteroscopy D and C with possible polypectomy. The patient understands the procedure. The procedure was described to the patient in great detail. the patient also understands the risks. The risks were also explained in detail. She understands that injuries May occur during surgery. She understands these injuries can result in hospitalization, more surgery, and severe illness. She understands there is risk of hemorrhage and infection. Navid Cespedes MD [address], [place], [address], [facility] 05/25/2024 13:06:57 OBGyn Episode Ob Episode Information Episode Created Date Number of Fetuses Patient Bloodtype Patient rh Status Prepregnancy Weight lbs Domestic Partner Domestic Partner Phone Father Name Log Cooker Status 08/25/19 21 1 CLOSED Fetus Data First Name Last Name Admitted to NICU Weight (g) Sex Living Outcome Pediatric Complications Fetus ID Race Codes Race Delivery Type 4195.72 6 F Full Term [id number] Primary Abrahan Calculation Initial Abrahan Date Initial Exam Date Initial Exam Provider Initial Ultrasound Date Last Menstrual Period Date Ultra Sound Weeks Gestation 0 Eighteen To Twenty Week Abrahan Update Ultra Sound Date Fundal Height At [facility] Quickening Date Ultra Sound Latest Weeks Gestation Final Abrahan Confirmed By Final Abrahan Confirmed Date Final Abrahan Date Ultra Sound Latest Days Gestation 0 0 Menstrual History Last Menstrual Date Menses Monthly On Bcp Conception Prior Menses Frequency Hcg Plus Date Menarche Onset Age Delivery Information Delivery Date Delivery Type Labor Anesthesia Weeks Gestation Incision Type Labor Labor Length Hrs Delivered By Post Complications Tubal Sterilization Discharge Date Comments 5 Discharge Information Feeding Method Contraceptive Method Maternal HG B and HCT Levels Ob Episode Information Episode Created Date Number of Fetuses Patient Bloodtype Patient rh Status Prepregnancy Weight lbs Domestic Partner Domestic Partner Phone Father Name Log Cooker Status 08/25/19 21 1 CLOSED Fetus Data First Name Last Name Admitted to NICU Weight (g) Sex Living Outcome Pediatric Complications Fetus ID Race Codes Race Delivery Type 3883.65 [id number] F Full Term [id number] Primary Abrahan Calculation Initial Abrahan Date Initial Exam Date Initial Exam Provider Initial Ultrasound Date Last Menstrual Period Date Ultra Sound Weeks Gestation 0 Eighteen To Twenty Week Abrahan Update Ultra Sound Date Fundal Height At [place]mbil Quickening Date Ultra Sound Latest Weeks Gestation Final Abrahan Confirmed By Final Abrahan Confirmed Date Final Abrahan Date Ultra Sound Latest Days Gestation 0 0 Menstrual History Last Menstrual Date Menses Monthly On Bcp Conception Prior Menses Frequency Hcg Plus Date Menarche Onset Age Delivery Information Delivery Date Delivery Type Labor Anesthesia Weeks Gestation Incision Type Labor Labor Length Hrs Delivered By Post Complications Tubal Sterilization Discharge Date Comments 2 Discharge Information Feeding Method Contraceptive Method Maternal HG B and HCT Levels
--- OUTSIDE RECORDS SUMMARY | 2024-06-30 11:43 | XMS_ITS | Continuity of Care Document ---
Author Organization [facility] Address [address] [place] [address] Phone Care Team Providers Care Chlorobutadiene Scrubber Operator Name Role Phone Franc Anderson MD, MD Unavailable Unavailable Allergies, Adverse Reactions, Alerts Substance Reaction Status Criticality hydrocodone Active No Information Sulfa (Sulfonamide Antibiotics) hives Active No Information Medications Medication Instructions Dosage Effective Dates (start - stop) Status Comments flaxseed oil 1,000 mg capsule take 1 capsule by oral route 2 times every day 1 capsule - Active LITTLE REMEDIES COUGH-IMMUNE (unknown strength) Not Available - Active ANJESO (unknown strength) Not Available - Active amitriptyline 10 mg tablet take 1 tablet by oral route every day 10 MG - Active multivitamin capsule take 1 capsule by oral route every day - Active VITAMIN D3 (unknown strength) Not Available - Active VITAMIN E (unknown strength) Not Available - Active PAPAYA ENZYME (unknown strength) Not Available - Active MAGNESIUM (unknown strength) Not Available - Active BIOTIN (unknown strength) Not Available - Active FISH OIL (unknown strength) Not Available - Active ADDERALL (unknown strength) Not Available - Active AMBIEN (unknown strength) Not Available - Active OMEPRAZOLE (unknown strength) Not Available - Active SYNTHROID (unknown strength) Not Available - Active Refresh Optive Advanced (PF) 0.5 %-1 %-0.5 % eye drops in dropperette 1 drop 4 times per day both eyes - No Longer Active Refresh Optive 1 %-0.9 % eye gel drops 1 drop at bedtime both eyes - No Longer Active DYANAVEL XR (unknown strength) Not Available - No Longer Active VITAMIN B-12 (unknown strength) Not Available - No Longer Active Procedures Procedure Date OFFICE/OUTPATIENT VISIT, EST DRAINAGE OF HEMATOMA/FLUID REFRACTION EYE EXAM & TREATMENT REFRACTION EYE EXAM & TREATMENT REFRACTION EYE EXAM & TREATMENT OFFICE/OUTPATIENT VISIT, EST OFFICE/OUTPATIENT VISIT, NEW Advance Directives Directive Yes / No Effective Date File Name No Information Encounters Encounter Description Practice Location Reason(s) For Visit Diagnoses Date Provider Providers Copied on Encounter OFFICE/OUTPA TIENT VISIT, EST [facility], [address] [place] [address], [id number] tel:[phone] JARROD Omer cyst RUL 3 month(s) (chief complaint) Benign neoplasm of skin of right upper eyelid 202 0 Justin Bruner. [facility], [address] [place] [address], [id number]. tel:[phone] Other Provider: Hiren Mendez OD, [address], [id number]. tel:[phone] erring Provider: Hiren Mendez OD, [address], [address]. 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 [facility], [address] [place] [address], [id number]. tel:[phone] Referring Provider: Hiren Mendez OD, [address], [id number]. tel:[phone] [facility], [address] [place] [address], [place], [place], [id number] tel:[phone] [place]OD [place] PresbyopiaDry eye syndrome of bilateral lacrimal glands 6 Alberto Reed. [facility], [address] [place] [place], [id number]. tel:[phone] [facility], [address] [place], [id number] tel:+ [phone] JARROD [place] PresbyopiaPresb yopiaDiabetes Mellitus Type 2, Uncomplicated 5 Alberto Reed. [facility], [address] [place], [id number]. tel:[phone] [facility], [address] [place], [id number] tel:+ [phone] [place]ARROD [place] Presbyopia 4 Cayetano Denny. [facility], [address] [place], [id number]. tel:[phone] [facility], [address] [place], [id number] tel:+ [phone] [facility]ARROD [place] No Information 4 Ines Campos. [facility], [facility] [place], [id number]. tel:[phone] OFFICE/OUTPA TIENT VISIT, [facility], [address] [place], [id number] tel:+ [phone] JARROD [place] Superficial injury of cornea 1 Roselia Keith. [facility], [address] [place], [id number]. tel:[phone] OFFICE/OUTPA TIENT VISIT, NEW [facility], [address] [place], [id number] tel:+ [phone] JARROD Omer Pain in or around eyeSuperficial injury of cornea 2201 1 Alberto Reed. [facility], [address] [facility] [place], [id number]. tel:[phone] Family History Family Member Type Diagnosis Age At Onset Paternal grandmother Problem (finding) cataract Father Problem (finding) cataract Paternal grandfather Problem (finding) malignant neopl asm of lung Payers Payer name Insurance type Covered republican ID Authoriza tion(s) [facility] [id number] Social History Type Description Quantity Date Captured Comments Alcohol Use Details Caffeine Use Details Unknown Tobacco Use Status Current non-smoker Smoking Status Former smoker Non-Smoking Tobacco Use Details : No Details Available : No Details Available Sex Female Chief Complaint And Reason For Visit From encounter dated '07/07/2019 15:20'. cyst RUL 3 month(s) (chief complaint) Reason For Referral Reason For Referral No Information History Of Present Illness Encounter Date Complaint History Of Prese nt Illness cyst The 48 year old presents for evaluation of cyst in the RUL. It started about 3 month(s) ago. The symptom is constant. The condition is worsening. Patient notes it is sore to touch and she can feel it when she blinks. Patient notes this is almost in the same spot that her last one was in. 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 - Discussed Hidradenomas are blocked sweat glands that fill with fluid. They can have a little blood in them to give them a darker color. These are benign lesions, not cancerous. Can rashard in office to drain; will aim for a blood vessel to help close the pore down. These can come back. It's okay to leave alone, it will not hurt the eye. This could stay the same size or continue to grow. If bothersome then can rashard, if patient not bothered okay to wait. Patient understands and elects to proceed. 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 Expressed contents with qtips. Patient tolerated well without complications. Will be completely healed in 5-7 days. 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 - Discussed findings with patient. Patient has significant dry eye OU Recommend Inflammadry and tear lab next appt. Recommend AT's 1 drop OU 3-4 times daily. Also recommend Flax seed oil daily. Discusssed possibly starting Restasis, will decide at the next appt. No tears 2 hours prior to the dry eye eval Related to Dry eye syndrome, bilateral Presbyopia OU Condit ion: established, stable. - updated glasses script given today Related to Presbyopia Presbyopia OU Condit ion: established, stable. - Educational materials provided: Discussed diagnosis with patient, new glasses rx given. Stable exam and will continue to monitor. 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 Related to Presbyopia Diabetes Type II OU Condition: new prob, no addtl w/u needed. - Discussed exam, patient has healthy eyes, no diabetic damage seen today OU. Stressed blood sugar/blood pressure control to reduce risk of future progression. Eyes appear healthy, no CHANNEL OPENER seen today. Will cont to monitor. Related to Diabetes Type II Follow up - Return i n 1 year with Brianna Dominguez MD for Complete. Related to Presbyopia Follow up - Return i n 1-2 with Eduin Monteiro OD for Complete. Related to Presbyopia Presbyopia OU Condit ion: new prob, no addtl w/u needed. - Reading glasses ok, +1.00 DS. Call with vision changes. Related to Presbyopia Assessments Type Assessment Date assessment Benign neoplasm of skin of right upper eyelid impression Benign neoplasm of s kin of right upper eyelid: D23.111 Right. Condition: new problem, addtl w/u needed Patient Care Teams Name Effective Dates (start - stop) Status Members No Information
--- OUTSIDE RECORDS SUMMARY | 2024-06-30 11:43 | XMS_ITS | Referral Summary ---
Author Organization [facility] Address [address] [place] [address] Care Team Providers Care Business Systems Administrator Name Role Phone Andrews Kent MD Primary Care Provider [phone] Andrews Kent MD Unavailable [phone] Encounters Date Type Department Care Team Description 06/15/2024 5:15 PM CDT Office Visit [facility] [place] [address] [place] [address] Radha Palafox, KELSEA Sore throat (Primary Dx); Pharyngitis, unspecified etiology from Last 3 Months Allergies No known active allergies Medications hydroCHLOROthia [...] Diagnosed Date Spell of visual disturbance 05/14/2018 Social History Tobacco Use Types Packs/Day Years [...] file Not on file Not on file Last Filed Vital Signs Vital Sign Reading [...] 06/15/2024 5:09 PM CDT Plan of Treatment Not on file Procedures Procedure Name Priority Date/Time Associated Diagnosis Comments POCT RAPID STREP Routine 06/15/2024 5:18 PM CDT Sore throat from Last 3 Months Results * POCT rapid strep A (06/15/2024 5:18 PM CDT) Rapid Strep A, POC Negative Negative Swab 06/15/2024 5:18 PM CDT Radha FernandoIna Palafox SLEEPING CAR CONDUCTOR POINT OF CARE TEST ORDERAB LES Final Result from Last 3 Months Insurance [facility] [id number] [facility] [id number] Care Teams Business Systems Administrator Relationship Specialty Start Date End Date Andrews Kent MD [address] [place] [address] PCP - General Internal Medicine 05/14/18 Andrews Kent MD [address] [place] [address] Internal Medicine 05/14/18
[2024-06-30 12:19] LABS: Anion Gap 7 mmol/L (4-12); Blood Urea Nitrogen 20 mg/dL (7-17); Calcium 9.1 mg/dL (8.4-10.2); Carbon Dioxide 32 mmol/L (22-30); Chloride 99 mmol/L (98-107); Estimated Glomerular Filt Rate > 60; Glucose 91 mg/dL (65-110); Potassium 3.8 mmol/L (3.4-5.0); Sodium 138 mmol/L (137-145)
== END 2024-06-30 11:37 | disposition home or self-care (01) ==
LOC: ANHSURGERY 11:39
PROVIDERS: Anesthesiology; PCP Internal Medicine; Visit Provider Obstetrics & Gynecology
DX: R60.9 Edema, unspecified (principal)
CPT/HCPCS: 36415; 80048

== ENCOUNTER 2024-07-07 00:43 | Day surgery (SDC) | payer OTHER, SELFPAY ==
[2024-06-25 08:37] VITALS: BMI 37.5
--- NOTE | 2024-06-25 08:46 | PC.NURSE ---
Report to the Outpatient Waiting Room, entrance under the green pavilion located off [facility], at time _0800_ on date _07/07/24. Planned Procedure Time: _1000_.? Time changes happen often and if your time is changed the preop area will call you the afternoon before. - You and your visitor will be asked to self-screen and do not enter if you have any COVID symptoms. Please call surgeon if you need to reschedule. - A mask is optional within the hospital at this time. Patients may have clear liquids (water, carbonated beverages, clear teas, apple juice) until 3 hours prior to surgery with a maximum of 20 ounces. - No food from midnight until time of surgery and no smoking, or chewing tobacco (or any form of nicotine). No chewing gum, candy or mints. - Infants may have breast milk until 4 hours before surgery, infant formula 6 hours prior to surgery. - Children will be allowed to drink immediately following surgery.? If applicable, please bring a bottle or sippy cup to assist with drinking. Juice, water, soda, and popsicles are readily available.? For infants on formula, please bring formula the day of surgery.? Pacifiers are allowed. Take only the following medications with a SIP of water on the morning of surgery: ___NONE DO NOT STOP ANY OF YOUR OTHER PRESCRIPTION MEDICATIONS PRIOR TO SURGERY EXCEPT THE FOLLOWING Hold all vitamins and supplements for 3 days per anesthesiologist. Medications to discontinue per physician Date to take last dose Please no make-up, nail turkish, hairspray, perfume, deodorant, or body powder the day of surgery.? No jewelry (including any body piercings) or valuables the day of surgery, leave them at home.? Please take a shower or bath the night before, or the morning of, surgery with an antibacterial soap.? Wear comfortable, loose fitting clothing.? Children are encouraged to wear pajamas. - Jewelry must be removed prior to entering the operating room.? Rings and piercings that are not removed may be cut off. - The hospital will not accept responsibility for valuables.? - Please leave all valuables, including medications, at home the day of surgery. If you are going home after surgery, a licensed pack train driver must drive you home.? - NO public transportation without another adult if you receive anesthesia. - We recommend that an adult stay with you for 24 hours following discharge. - We also recommend that you do not drive, make important decision, drink alcoholic beverages, or take any drugs that were not prescribed by your health care provider for at least 24 hours after your discharge time. For Pediatric surgeries, we recommend two adults accompany the child home. Follow any additional instructions given to you from your surgeon. Telephone instructions given to __BEER__and asked if any additional questions and then verbalized understanding. Patient advised to call surgeon office or pre surgery nurse liaison [phone] if any additional questions.
--- OUTSIDE RECORDS SUMMARY | 2024-07-07 00:46 | XMS_ITS | Encounter Summary ---
Author Organization [facility] Address [address] [place] [address] Phone Care Team Providers Care Supervisor Adult Education Name Role Phone Andrews Kent MD Primary Care Provider [phone] Reason for Visit * Reason Comments Medication Refill Encounter Details Date Type Department Care Team ([facility] Contact Info) Description 10/26/2019 Refill [facility] - Internal Medicine - [place] [address] [place] [id number] Andrews Kent MD [address] [place] [address] Medication Refill Social History Tobacco Use Types Packs/Day Years Used Date Smoking Tobacco: Never Assessed Comments Unknown Sex and Gender Information Value Date Recorded Sex Assigned at Not on file Legal Sex Female 1:44 PM CDT Gender Identity Not on file Sexual Orientation Not on file documented as of this encounter Miscellaneous Notes * Telephone Encounter - Andrews Kent MD - 10/26/2019 1:12 PM CDT Needs demo info to erx * Telephone Encounter - Bree Camejo RN - 10/26/2019 12:16 PM CDT Please review and sign. documented in this encounter Plan of Treatment Upcoming Encounters Date Type Department Care Team (Late st Contact Info) Description 07/14/2024 8:00 AM CDT Office Visit [facility] - Internal Medicine [place] [address] [place] [address] Andrews Kent MD [address] [place] [address] documented as of this encounter Visit Diagnoses Not on filedocumented in this encounter Care Teams Supervisor Adult Education Relationship Specialty Start Date End Date Andrews Kent MD [address] [place] [address] PCP - General Internal Medicine 03/30/19 documented as of this encounter
--- OUTSIDE RECORDS SUMMARY | 2024-07-07 00:46 | XMS_ITS | Data Portability ---
Author Organization [facility] Address [address] [place] [address] Care Team Providers Care Machinist Supervisor Name Role Phone GHAZALA BUCHANAN Primary Care Provider Assessment Encounter Date Assessment Date Assessment LastModified by Organization Details LastModified Time 08/24/2020 08/24/2020 healthy female exam patient declines std testing pap done, discussed guidelines mammogram ordered and strongly encouraged contraception-tu bal FU 1 year or prn [email or web address] Not available 08/24/2020 14:15:11 11/15/2022 11/15/2022 Annual gynecological exam performed. Patient will come back in a year unless there are new symptoms. Not available 11/15/2022 14:06:35 04/20/2024 04/20/2024 Annual gynecological exam performed. Patient will come back in a year unless there are new symptoms. [email or web address] Not available 04/20/2024 09:17:43 Plan of Treatment Reminders Order Date Submit Date Provider Last Modified By Organization Details Last Modified Time Details Appointments SURG Hysterosc opy 2024 10:00A Cheo CESPEDES MD Not available Not available Not available Lab None recorded. Referral None recorded. Procedures None recorded. Surgeries hysterosc opy, surgical, with biopsy of endometri um and/or polypecto my (SURG) 2024 025 [id number] [id number] [address], [place], [address], 06/10/2024 15:24:19 Imaging US, pelvis 2024 025 [email or web address], [place], [address], 05/04/2024 22:01:02 US, transvagi nal 2024 025 [email or web address], [address], [place], [address], 05/04/2024 22:01:02 MAMMO, screening , digital, bilateral [email or web address] [facility], [address], [place], [address], 05/05/2024 15:38:59 MAMMO, screening , digital, bilateral [address], [address], [place], [address], 11/15/2022 15:13:45 Medication Orders None recorded. Patient [...] as clini ines martinez nted. Not Available [facility] (Lab) [address] [facility], [place], [address], 08/26/2020 12:39:43 04/21/19 25 04/20/2024 IMAGE GUIDE [...] Intra epith elireji dennis or Terra strickland ([facility]) . Endom etnaomy jasso nt. Elect [...] as clini ines martinez nted. Not Available [facility] (Lab) [address], [place], [address], 04/23/2024 14:19:49 09/28/19 21 09/27/2020 MAMMO , scree belem, bilat eral No observ ation record ed. [address], [place], [address], 11/15/2022 15:11:40 05/05/19 25 05/04/2024 US, pelvi s No observ ation record ed. [email or web address] [address], [place], [address], 05/04/2024 16:13:25 05/05/19 25 05/04/2024 US, trans vagin al No observ ation record ed. [email or web address] [address], [place], [address], 05/04/2024 16:13:34 05/05/19 25 05/04/2024 US, pelvi s No observ ation record ed. [email or web address], [place], [address], 05/06/2024 18:54:23 Result Notes None recorded. Problems Name Problem SNOMED Code Status Onset Date Resolution Date Notes Provider Name and Address Organization Details Recorded Time Hypertensive disorder 33941482 Active 2020 Lara Becker MD [address], [place], [address], [place] [facility] 14:13:22 Body mass index 30+ - obesity 784207105 Active 2020 Lara Becker MD [address], [place], [address], [facility] 14:13:29 Problem Notes None recorded. Procedures Surgical History Date Name Laterality Status Provider Name and Address Organization Details Recorded Time 04/21/19 25 Date of Last Pap Smear completed Alee Cornejo [facility] 05/25/2024 12:42:46 11/12/19 23 Date of Last Mammogram completed Ness Segovia [facility] 04/20/2024 09:27:41 02/11/18 97 Tubal Ligation completed Obdulia Elkins [facility] 08/24/2020 09:36:52 02/11/18 96 Cholecystectomy completed [facility] 08/24/2020 09:36:43 02/11/18 95 delivery completed [facility] 08/24/2020 09:36:33 02/11/18 92 delivery completed [facility] 08/24/2020 09:36:23 Imaging Results None recorded. Procedure Notes None recorded. Medical Equipment None Reported. Allergies No known drug allergies Medications Name Sig Start Date Stop Date Status Note LastModified by Organization Details LastModified Time amoxicillin 500 mg capsule TAKE 1 CAPSULE BY MOUTH TWICE A DAY FOR 10 DAYS active Not Available Not Available No t Available benzonatate 200 mg capsule 04/20 completed Not [...] Not Available Vitals Date Recorded Body height Body mass index (BMI) Body weight Systolic And Diastolic Provider Name and Address Organization Details Last Updated DateTime 04/20/2024 162.56 cm 36 kg/m2 19652.96 g 156/85 mm[Hg] Ness Segovia [facility] 04/20/2024 09:25:16 Date Recorded Body height Body mass index (BMI) Body weight Systolic And Diastolic Provider Name and Address Organization Details Last Updated DateTime 05/25/2024 162.56 cm 36.9 kg/m2 00038.36 g 152/82 mm[Hg] Alee Cornejo [facility] 05/25/2024 12:42:27 Date Recorded Body mass index (BMI) Body weight Provider Name and Address Organization Details Last Updated DateTime 08/24/2020 39.8 kg/m2 798437.43 g Lara Becker MD [address], [place], [address], [facility] 08/24/2020 14:12:57 Date Recorded Body height Systolic And Diastolic Systolic And Diastolic Provider Name and Address Organization Details Last Updated DateTime 08/24/2020 162.56 cm 148/108 mm[Hg] 138/80 mm[Hg] Obdulia Elkins [facility] 08/24/2020 11:02:33 Date Recorded Systolic And Diastolic Provider Name and Address Organization Details Last Updated DateTime 11/15/2022 130/74 mm[Hg] Elizabeth Foote [facility] [address], [place], [address], [facility] 11/15/2022 15:10:55 Date Recorded Body height Body mass index (BMI) Body weight Provider Name and Address Organization Details Last Updated DateTime 11/15/2022 162.56 cm 39.1 kg/m2 308912.06 g Alee Cornejo [facility] 11/15/2022 14:06:48 Social History Question Answer Notes LastModified by Organizat ion Details LastModified Time Tobacco Smoking Status Never Smoker Obdulia griggs, [facility] 08/24/2020 10:54:31 In The 14 [...] Functional Status Question Answer Note LastModified by Organizat ion Details LastModified Time Do you use [...] (Food, seasonal, environmental ) N Other N Drug/Latex Allergies/Reactions N Breast Cancer N Blood Transfusion N Lung Disease N Dermatologic Disorders N Defects or Inherited Disease N Breast Problem N Gestational Diabetes N Hematologic disorders N Anesthesia Complications N History of STI N Deep Vein Thrombosis N Polycystic ovary syndrome N Anxiety Disorder N Autoimmune disease N Arthritis N Polyps N Infertility N History of abnormal pap N Acid Reflux (GERD) N Cancer N Varicosities N Stroke N Neurologic/Epilepsy N Endometriosis N High Cholesterol N Headaches N Fibromyalgia N Kidney Disease N Heart Problems N Thyroid Problems N Kidney or Bladder Problems N GI Problems N Eating Disorder [...] SNOMED-CT Code Diagnosis ICD10 Code Diagnosis Note [id number] Lara Becker MD [facility] [address] [address] 08/24/2020 10:45:48 08/25/2020 14:07:46 Gynecologic examination 99210066 Z01.419 Z11.51 [id number] Elizabeth Foote [facility] [address] [address] 11/15/2022 13:57:09 11/15/2022 15:13:45 Gynecologic examination 87841378 Z01.419 Take Calcium with Vitamin D 12-1500mg daily. Do monthly self breast exams. It is advised to get annual flu shot in the fall and she could obtain at [facility] or [facility] care clinic. If you haven't received the [...] naRoutine Labs utd pcp Screening mammography 24 158614 Z12.31 [id number] Natasha HillsYFN [address] [address] 04/20/2024 09:10:17 04/20/2024 09:47:14 Gynecologic examination 79430375 Z01.419 WWEPap - done todaySTI screen - [...] answered. Screening for malignant neoplasm of breast 360042645 Z12.39 [id number] Navid Cespedes MD [facility] [address] [address] 05/04/2024 09:53:18 05/04/2024 10:48:21 Irregular periods 73751724 N92.6 [id number] Navid Cespedes MD [facility] [address] [address] 05/25/2024 12:25:10 05/25/2024 13:07:22 Abnormal uterine bleeding 6659131889 9100 N93.9 Endometrial polyp 075683 7693 N84.0 patient is a 53-year-ol d female [...] [facility] - DOS PRIOR TO 20 - [facility] [address] [id number] 11/15/2022 1 [facility] [address] [id number] [address] 04/20/2024 1 [facility] [address] [id number] [address] 05/04/2024 1 [facility] [address] [id number] [address] 05/25/2024 1 [facility] [id number] Notes Date Note Type Note Provider Name and Address Organization Details Recorded Time 1 text/htm l Patient is a 49yo who presents for an annual exam. last pap-2017, all normal mammogram- 2017 sexually active-y contraception-tubal seatbelts-y exercise-some depression-denies domestic violence-denies tobacco-n concerns-none Lara Becker MD [address], [place], [address], [facility] 08/24/2020 14:15:32 3 text/htm l Annual Votator Machine Operator Post-MenopausalReported bypatient.Menopausal Symptoms:no menopausal symptoms; normal vaginal [...] recent colonoscopy YFN Masterson- [address], [place], [address], [facility] 11/15/2022 15:13:22 5 text/htm l Annual [...] done 2023 YFN Navarro [address], [place], [address], [facility] 04/20/2024 09:45:58 5 text/htm l patient [...] infection. Navid Cespedes MD [address], [place], [address], [facility] 05/25/2024 13:06:57 OBGyn Episode Ob Episode Information Episode Created Date Number of Fetuses Patient Bloodtype Patient rh Status Prepregnancy Weight lbs Domestic Partner Domestic Partner Phone Father Name Conciliation Court Judge Status 08/25/19 21 1 CLOSED Fetus Data First Name Last Name Admitted to NICU Weight (g) Sex Living Outcome Pediatric Complications Fetus ID Race Codes Race Delivery Type 4195.72 6 F Full Term [id number] Primary Abrahan Calculation Initial Abrahan Date Initial [...] Domestic Partner Domestic Partner Phone Father Name Conciliation Court Judge Status 08/25/19 21 1 CLOSED Fetus Data First Name Last Name Admitted to NICU Weight (g) Sex Living Outcome Pediatric Complications Fetus ID Race Codes Race Delivery Type 3883.65 4704 F Full Term [id number] Primary Abrahan Calculation Initial Abrahan Date Initial [...]
--- OUTSIDE RECORDS SUMMARY | 2024-07-07 00:46 | XMS_ITS | Clinical Summary ---
Author Organization [facility] Care Team Providers Care Interior Paneler Name Role Phone Andrews Kent MD Primary Care Provider [phone] Medications Ascorbic Acid 125 MG Chewable Tablet Take by mouth. Active Multiple Vitamin (Multivitamins) Capsule Take 1 Cap by mouth. Active Fosinopril Sodium 40 MG Tablet Take 1 Tablet by mouth daily. 90 Tablet 1 01/13/2024 Active hydroCHLOROthiaz juliana 25 MG Tablet TAKE 1 TABLET BY MOUTH EVERY DAY 90 Tablet 1 05/22/2024 Active Active Problems Problem Noted Date Diagnosed Date Generalized osteoarthritis 12/16/2020 Migraine with aura 01/23/2013 Essential hypertension, benign 08/03/2010 Encounters Date Type Department Care Team Description 05/22/2024 Refill [facility] [address] [place] [address] Andrews Kent MD Medication Refill from Last 3 Months Family History Medical History Relation Name Comments No Known Problems Brother 1 Diabetes Father Hypertension Father Hypertension Mother Thyroid Disease Mother No Known Problems Sister 1 No Known Problems Sister 2 Relation Name Status Comments Brother 1 Alive Brother 2 Alive Brother 3 Father Alive Mother Sister 1 Alive Sister 2 Alive Social History Tobacco Use Types Packs/Day Years Used Date Smoking Tobacco: Former Cigarettes Q uit: 07/08/2003 Passive Smoke Exposure: Past Smokeless Tobacco: Never Tobacco Cessation:Counseling Given: No Alcohol Use Standard Drinks/Week Comments Not Currently 0 (1 standard drink = 0.6 oz pur e alcohol) [facility] Utilities Answer Date Recorded In the past 12 months has [facility] [employer], oil, or [employer] threatened to shut off services in your home? No 06/25/2023 Social Connection and Isolat ion Panel [NHANES] Answer Date Recorded In a typical week, how many times do you talk on the phone with family, friends, or neighbors? More than three times a week 06/25/2023 How often do you get togethe r with friends or relatives? Once a week 06/25/2023 How often do you attend chur ch or hoahaoism services? 1 to 4 times per year 06/25/2023 Do you belong to any clubs o r organizations such as spiritism groups, unions, fraternal or athletic groups, or school groups? Yes 06/25/2023 How often do you attend meet ings of the clubs or organizations you belong to? 1 to 4 times per year 06/25/2023 Are you , , di vorced, , never , or living with a partner? 06/25/2023 AUDIT-C Answer Date Recorded Q1: How often do you have a drink containing alcohol? Monthly or less 06/25/2023 Q2: How many drinks containi ng alcohol do you have on a typical day when you are drinking? Patient does not drink Q3: How often do you have si x or more drinks on one occasion? Never 06/25/2023 Overall Financial Resource Strain (CARDIA) Answe r Date Recorded How hard is it for you to pa y for the very basics like food, housing, medical care, and heating? Not hard at all 06/25/2023 PHQ-2 Answer Date Recorded Total Score - Questions 1-9 0 06/11 [facility] - Occupational Stress Questionnaire Answer Date Recorded Do you feel stress - tense, restless, nervous, or anxious, or unable to sleep at night because your mind is troubled all the time - these days? Not at all 06/25/2023 Exercise Vital Sign Answer Date Recorde d On average, how many days pe r week do you engage in moderate to strenuous exercise (like a brisk walk)? 2 days 06/25/2023 On average, how many minutes do you engage in exercise at this level? 20 min 06/25/2023 Hunger Vital Sign Answer Date Recorded Within the past 12 months, y ou worried that your food would run out before you got the money to buy more. Never true 06/25/19 24 Within the past 12 months, t he food you bought just didn't last and you didn't have money to get more. Never true 06/25/2023 PRAPARE - Transportation Answer Date Re corded In the past 12 months, has l ack of transportation kept you from medical appointments or from getting medications? No 06/11 In the past 12 months, has l ack of transportation kept you from meetings, work, or from getting things needed for daily living? No 06/25/2023 Housing Stability Vital Sign Answer Branden e Recorded In the last 12 months, was t here a time when you were not able to pay the mortgage or rent on time? No 06/25/2023 In the last 12 months, how many places have you lived? 1 06/25/2023 In the last 12 months, was t here a time when you did not have a steady place to sleep or slept in a penitentiary (including now)? No 06/25/2023 Education Answer Date Recorded What is the highest level of school you have completed or the highest degree you have received? 12th grade 06/27/2022 Sexually Active Control Partners Comments Yes Comments No Sex and Gender Information Value Date Recorded Sex Assigned at Not on file Legal Sex Female 1:44 PM CDT Gender Identity Not on file Sexual Orientation Not on file Last Filed Vital Signs Vital Sign Reading Time Taken Comments Blood Pressure 116/64 01/13/2024 11:37 AM SCHOOL HEALTH ASSISTANT Pulse 86 01/13/2024 11:37 AM SCHOOL HEALTH ASSISTANT Temperature 36.2 C (97.2 F) 01/13/2024 11:37 AM SCHOOL HEALTH ASSISTANT Respiratory Rate 12 06/27/2023 8:30 AM CDT Oxygen Saturation 97% 01/13/2024 11:37 AM SCHOOL HEALTH ASSISTANT Inhaled Oxygen Concentration - - Weight 91.2 kg (201 lb) 01/13/2024 11:37 AM SCHOOL HEALTH ASSISTANT Height 160 cm (5' 3 ) 01/13/2024 11:37 AM SCHOOL HEALTH ASSISTANT Body Mass Index 35.61 01/13/2024 11:37 AM SCHOOL HEALTH ASSISTANT Plan of Treatment Upcoming Encounters Date Type Department Care Team (Late st Contact Info) Description 07/14/2024 8:00 AM CDT Office Visit [facility] - [facility] - [place] [address] [place] [address] Andrews Kent MD [address] [place] [address] Health Maintenance Due Date Last Done Comments Hepatitis C Virus (HCV) Screening 1970 TdaP Immunization 1970 Hepatitis B Immunization (1 of 3 - 19+ 3-dose series) 1989 HPV/Cotest 2000 Colonoscopy 11/13/2015 Immunochemical Fecal Occult Blood 2020 Pneumococcal Immunization (5 0+ years) (1 of 1 - PCV) 2020 Zoster Immunization (1 of 2) 2020 SARS-COV-2 Immunization (1 - season) 2023 Mammogram 11/29/2023 11/28/2022, 09/27/2020 Colorectal Cancer Screening 02/20/2024 Cervical Cancer Screening (CCS) 02/06/2025 Pap Smear 02/06/2025 02/06/2022, 07/25/2020 Cologuard 02/18/2027 02/19/2024, 12/23/2020 Respiratory Syncytial Virus (RSV) Immunization (Adult) (1 - 1-dose 75+ series) 2045 Discussion re Starting/Frequency of Mammograms Discontinued 11/28/2022, 09/27/2020 Human Papillomavirus (HPV) Immunization Aged Out No longer eligible based on patient's age to complete this topic Influenza Immunization Discontinued Meningococcal Immunization (ACWY) Aged Out No longer eligible based on patient's age to complete this topic Rotavirus Immunization Aged Out No lo nger eligible based on patient's age to complete this topic Procedures Procedure Name Priority Date/Time Associated Diagnosis Comments BASIC METABOLIC PANEL W/ CALCIUM TOTAL 06/30/2024 12:00 AM CDT COLOGUARD Routine 02/19/2024 9:20 AM SCHOOL HEALTH ASSISTANT Screening for colorectal cancer MAMMOGRAM BILATERAL GENERIC 11/28/2022 12:00 AM CDT from Last 3 Months or Most Recently Relevant to Health Maintenance Results * BASIC METABOLIC PANEL W/ CALCIUM TOTAL (06/30/2024 12:00 AM CDT) 06/30/2024 us Provider Scan CHEMISTRY ORDERABLES Final Resul t SCAN * COLOGUARD (02/19/2024 9:20 AM SCHOOL HEALTH ASSISTANT) Cologuard Negative Negative [facility] Comment: NEGATIVE TEST RESULT. A negative Cologuard result indicates a low likelihood that a colorectal cancer (CRC) or advanced adenoma (adenomatous polyps with more advanced pre-malignant features) is present. The chance that a person with a negative Cologuard test has a colorectal cancer is less than 1 in 1500 (negative predictive value >99.9%) or has an advanced adenoma is less than 5.3% (negative predictive value 94.7%). These data are based on a prospective cross-sectional study of 10,000 individuals at average risk for colorectal cancer who were screened with both Cologuard and colonoscopy. (Prashanth Hodge et al, N Engl J Med 2014;370(14):0790-9972) The normal value (reference range) for this assay is negative. COLOGUARD RE-SCREENING RECOMMENDATION: Periodic colorectal cancer screening is an important part of preventive healthcare for asymptomatic individuals at average risk for colorectal cancer. Following a negative Cologuard result, the [place] [employer] Society and U.S. Multi-Society Task Force screening guidelines recommend a Cologuard re-screening interval of 3 years. References: [place] [employer] Guideline for Colorectal Cancer Screening: https://www.cancer.org/cancer/qoopv-zrtxvh-sprlim/bophkjgdu-lwjnfaypw-zorafwl/ acs-recommendations.html.; Natalio DK, Brock CR, Vivian KrishnamurthyK, Colorectal Cancer Screening: Recommendations for Physicians and Patients from the U.S. Multi-Society Task Force on Colorectal Cancer Screening , Am J Gastroenterology 2017; 112:5262-7548. TEST DESCRIPTION: Composite algorithmic analysis of stool DNA-biomarkers with hemoglobin immunoassay. Quantitative values of individual biomarkers are not reportable and are not associated with individual biomarker result reference ranges. Cologuard is intended for colorectal cancer screening of adults of either sex, 45 years or older, who are at average-risk for colorectal cancer (CRC). Cologuard has been approved for use by the U.S. FDA. The performance of Cologuard was established in a cross sectional study of average-risk adults aged 50-84. Cologuard performance in patients ages 45 to 49 years was estimated by sub-group analysis of near-age groups. Colonoscopies performed for a positive result may find as the most clinically significant lesion: colorectal cancer [4.0%], advanced adenoma (including sessile serrated polyps greater than or equal to 1cm diameter) [20%] or non- advanced adenoma [31%]; or no colorectal neoplasia [45%]. These estimates are derived from a prospective cross-sectional screening study of 10,000 individuals at average risk for colorectal cancer who were screened with both Cologuard and colonoscopy. (Prashanth Rios al, N Engl J Med 2014;370(14):0532-6705.) Cologuard may produce a false negative or false positive result (no colorectal cancer or precancerous polyp present at colonoscopy follow up). A negative Cologuard test result does not guarantee the absence of CRC or advanced adenoma (pre-cancer). The current Cologuard screening interval is every 3 years. ([place] [employer] Society and U.S. Multi-Society Task Force). Cologuard performance data in a 10,000 patient pivotal study using colonoscopy as the reference method can be accessed at the following location: www.[employer]ora.Audiotoniq/results. Additional description of the Cologuard test process, warnings and precautions can be found at www.cologuard.com. Stool 02/19/2024 9:20 AM SCHOOL HEALTH ASSISTANT 02/20/2024 8:10 AM SCHOOL HEALTH ASSISTANT us Andrews Kent MD BODY FLUIDS & STOOLS ORDERA BLES Final Result [facility] [address] [place] [address], [employer] [address] [place] [address] * MAMMOGRAM BILATERAL MISCELLANEOUS (11/28/2022 12:00 AM CDT) 11/28/2022 us Provider Scan IMG MAMMO ORDERABLES Final Resul t SCAN from Last 3 Months or Most Recently Relevant to Health Maintenance Insurance [employer] [facility] OA Care Teams Interior Paneler Relationship Specialty Start Date End Date Andrews Kent MD [address] [place] [address] PCP - General Internal Medicine 03/30/19
--- OUTSIDE RECORDS SUMMARY | 2024-07-07 00:46 | XMS_ITS | Encounter Summary ---
Author Organization [facility] Address [address] [place] [address] Phone Care Team Providers Care Structural Steel Shop Supervisor Name Role Phone Andrews Kent MD Primary Care Provider [phone] Reason for Visit * Reason Comments Medication Refill Encounter Details Date Type Department Care Team ([facility] st Contact Info) Description 01/20/2022 Refill [facility] - [place] [address] [place] [id number] Andrews Kent MD [address] [place] [address] Medication Refill Social History Tobacco Use Types Packs/Day Years Used Date Smoking Tobacco: Former Cigarettes Q uit: 07/08/2003 Smokeless Tobacco: Never Alcohol Use Standard Drinks/Week Comments Not Currently 0 (1 standard drink = 0.6 oz pur e alcohol) PHQ-2 Answer Date Recorded Total Score - Questions 1-9 0 06/11 Sexually Active Control Partners Comments Yes Comments No Sex and Gender Information Value Date Recorded Sex Assigned at Not on file Legal Sex Female 1:44 PM CDT Gender Identity Not on file Sexual Orientation Not on file COVID-19 Exposure Response Date Recorded In the last 10 days, have yo u been in contact with someone who was confirmed or suspected to have Coronavirus/COVID-19? No / Unsure 12/28/2021 8:20 AM JEWELRY RACKER documented as of this encounter Miscellaneous Notes * Telephone Encounter - Bree Camejo RN - 01/22/2022 9:11 AM CST Medication failed the protocol, provider to review and approve the medication order if appropriate. Requested Prescriptions Pending Prescriptions Disp Refills hydroCHLOROthiazide 25 MG Tablet [Pharmacy Med Name: HYDROCHLOROTHIAZIDE 25 MG TAB] 90 Tablet 1 Sig: TAKE 1 TABLET BY MOUTH EVERY DAY Diuretics Protocol Failed - 01/20/2022 1:42 PM Failed - Serum potassium on record in past 12 months No results found for: POTASSIUM, POCTK Failed - Serum sodium on record in past 12 months No results found for: SODIUM Failed - GFR on record in past 12 months No results found for: GFRNA Passed - Blood pressure on record in past 12 months Clinician-entered: BP Readings from Last 3 Encounters: 12/28/21 128/80 06/22/21 130/80 12/16/20 136/80 Patient-entered: No data recorded Passed - Visit with relevant provider in past 12 months or upcoming 90 days Recent Visits Date Type Provider Dept 12/28/21 Office Visit Andrews Kent MD [facility] [place] 06/22/21 Office Visit Andrews Kent MD [facility] [place] Showing recent visits within past 365 days and meeting all other requirements Future Appointments No visits were found meeting these conditions. Showing future appointments within next 90 days and meeting all other requirements LRY RACKER documented in this encounter Plan of Treatment Upcoming Encounters Date Type Department Care Team (Late st Contact Info) Description 07/14/2024 8:00 AM CDT [facility] - [place] [address] [place] [id number] Andrews Kent MD [address] [place] [address] documented as of this encounter Visit Diagnoses Not on filedocumented in this encounter Additional Health Concerns Assessment Noted Time PHQ-9 Depression Total Score: 0 06/08/19 21 1:00 PM CDT documented as of this encounter Care Teams Structural Steel Shop Supervisor Relationship Specialty Start Date End Date Andrews Kent MD [address] [place] [address] PCP - General Internal Medicine 03/30/19 documented as of this encounter
--- OUTSIDE RECORDS SUMMARY | 2024-07-07 00:46 | XMS_ITS | Continuity of Care Document ---
Author Organization [facility] Address [address] [place] [address] Phone Care Team Providers Care Pin Machine Operator Name Role Phone Ivana DOZIER, Lidia Unavailable Unavailable Allergies, Adverse Reactions, Alerts [...] Providers Copied on Encounter [facility], [address] [place] [address], [id number], [place] tel:[phone] [facility] New No Information Ivana Murillo. [address] [place] [address], [id number], [place]. tel:[phone] OFFICE/OUTPA TIENT VISIT, NEW [facility], [address] [place] [address], [id number], [place] tel:[phone] [facility] Fibromyalgia syndrome (chief complaint) Fibromyalgia FatigueBody mass index (BMI) 34.0-34.9, adultNicotin e dependence, cigarettes, uncomplicate dSicca syndrome, unspecified 8 Geneva Angle. [address] [place], [place], [id number], [place]. tel:[phone] Referring Provider: [facility] [address] [place] [address], [address]. tel:[phone] Family History Family Member Type Diagnosis Age [...] rction Payers Payer name Insurance type Covered republican ID Authoriza ticinthia(s) [facility] 12 [id number] Social History Type Description Quantity Date Captured [...]
--- OUTSIDE RECORDS SUMMARY | 2024-07-07 00:46 | XMS_ITS | Continuity of Care Document ---
Author Organization [facility] Address [address] [place] [address] Phone Care Team Providers Care Accounts Receivable Assistant Name Role Phone Franc Anderson MD, MD [...] OFFICE/OUTPA TIENT VISIT, EST [facility], [address] [place] [address], [id number] tel:[phone] JARROD Omer cyst RUL 3 month(s) (chief complaint) Benign neoplasm of skin of right upper eyelid 202 0 Justin Bruner. [facility], [address] [place] [address], [id number]. tel:[phone] Other Provider: Hiren Mendez OD, [address], [address]. tel:[phone] erring Provider: Hiren Mendez OD, [address], [address]. 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 [facility], [address] [place] [address], [id number]. tel:[phone] Referring Provider: Hiren Mendez OD, [address], [address]. tel:[phone] [facility], [address] [place] [address], [place], [place], [id number] tel:[phone] JARROD Byrd[place] PresbyopiaDry eye syndrome of bilateral lacrimal glands 6 Alberto Reed. [facility], [address] [place], [id number]. tel:[phone] [facility], [address] [place], [id number] tel:[phone] JARROD [place] PresbyopiaPresb yopiaDiabetes Mellitus Type 2, Uncomplicated 5 Alberto Reed. [facility], [address] [place], [id number]. tel:[phone] [facility], [address] [place], [id number] tel:[phone] JARROD Byrd[place] Presbyopia 4 Cayetano Denny. [facility], [address] [place], [id number]. tel:[phone] [facility], [address] [place], [id number] tel:[phone] JARROD ByrdPackwood No Information 4 Ines Campos. [facility], [facility] [place], [id number]. tel:[phone] OFFICE/OUTPA TIENT VISIT, [facility], [address] [place] [place], [id number] tel:[phone] JARROD [place] Superficial injury of cornea 1 Roselia Keith. [facility], [address] [place], [id number]. tel:[phone] OFFICE/OUTPA TIENT VISIT, NEW [facility], [address] [place], [id number] tel:[phone] JARROD Omer Pain in or around eyeSuperficial injury of cornea 2201 1 Alberto Reed. [facility], [address] [facility] [place], [id number]. tel:[phone] Family History Family Member Type Diagnosis Age At Onset Paternal grandmother Problem (finding) cataract Father Problem (finding) cataract Paternal grandfather Problem (finding) malignant neopl asm of lung Payers Payer name Insurance type Covered republican ID Authoriza tion(s) [facility] [id number] Social History Type Description Quantity Date Captured [...] glasses script given today Related to Presbyopia Diabetes Type II OU Condition: new prob, no addtl w/u needed. - Discussed exam, patient has healthy eyes, no diabetic damage seen today OU. Stressed blood sugar/blood pressure control to reduce risk of future progression. Eyes appear healthy, no VISUAL BASIC PROGRAMMER seen today. Will cont to monitor. Related to Diabetes Type II Follow up - Return i n 1 year with Brianna Dominguez MD for Complete. Related to Presbyopia Presbyopia OU Condit ion: established, stable. - Educational materials provided: Discussed diagnosis with patient, new glasses rx given. Stable exam and will continue to monitor. 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 Related to Presbyopia Follow up - Return [...]
--- OUTSIDE RECORDS SUMMARY | 2024-07-07 00:46 | XMS_ITS | Encounter Summary ---
Author Organization [facility] Address [address] [facility] [place] [address] Phone Care Team Providers Care Curriculum Development Manager Name Role Phone Andrews Kent MD Primary Care Provider [phone] Reason for Visit * Reason Comments Medication Refill Encounter Details Date Type Department Care Team ([facility] st Contact Info) Description 06/15/2022 Refill [facility] - [place] [address] [place] [id number] Andrews Kent MD [address] [facility] [place] [address] Medication Refill Social History Tobacco [...] encounter Miscellaneous Notes * Telephone Encounter - Janay Washington RN - 06/15/2022 2:25 PM CDT Medication failed the protocol, provider to review and approve the medication order if appropriate. Requested Prescriptions Pending Prescriptions Disp Refills fosinopril (MONOPRIL) 20 MG Tablet [Pharmacy Med Name: FOSINOPRIL SODIUM 20 MG TAB] 180 Tablet 0 Sig: TAKE 2 TABLETS BY MOUTH EVERY DAY YURIDIA Inhibitors Protocol Failed - 06/15/2022 2:23 PM Failed - Serum potassium on record in past 12 months No results found for: POTASSIUM, POCTK Failed - GFR on record in past 12 months No results found for: GFRNA Passed - Blood pressure on record in past 12 months Clinician-entered: BP Readings from Last 3 Encounters: 12/28/21 128/80 06/22/21 130/80 12/16/20 136/80 Patient-entered: No data recorded Passed - No positive test in the past 12 months or most recent test was negative Passed - Visit with relevant provider in past 12 months or upcoming 90 days Recent Visits Date Type Provider Dept 12/28/21 Office Visit Andrews Kent MD [facility] 06/22/21 [facility] [place] Showing recent visits within past 365 days and meeting all other requirements Future Appointments Date Type Provider Dept 06/27/22 Appointment Andrews Kent MD [facility] [place] Showing future appointments within next 90 days and meeting all other requirements Passed - No active on record documented in this encounter Plan of Treatment Upcoming Encounters Date Type Department Care Team (Late st Contact Info) Description 07/14/2024 8:00 AM CDT Office Visit [facility] - Internal Medicine - [place] [address] [place] [address] Andrews Kent MD [address] [place] [address] documented as of this encounter Visit Diagnoses Not on filedocumented in this encounter Additional Health Concerns Assessment Noted Time PHQ-9 Depression Total Score: 0 06/08/19 21 1:00 PM CDT documented as of this encounter Care Teams Curriculum Development Manager Relationship Specialty Start Date End Date Andrews Kent MD [address] [place] [address] PCP - General Internal Medicine 03/30/19 documented as of this encounter
--- OUTSIDE RECORDS SUMMARY | 2024-07-07 00:46 | XMS_ITS | Continuity of Care Document ---
Author Organization [facility] Address [address] [place] [address] Phone Care Team Providers Care Stocking And Box Shop Supervisor Name Role Phone CVM, CLINIC Unavailable Unavailable [...] route every day 1 capsule - Active levothyroxine 75 mcg tablet take 1 tablet by oral route every day 75 MCG - Active duloxetine 30 mg capsule,delayed release take 1 capsule by oral route every day 30 MG - Active Unknown Herbal Supplement MV w/probiotic-- once daily - Active Adderall 20 mg tablet take 1 tablet by oral route 3 times every day - Active Ambien 10 mg tablet take 1 tablet by oral route every day as needed at bedtime - Active amitriptyline 10 mg tablet take 1 to 2 tablet by oral route every day - Active betamethasone dipropionate 0.05 % topical ointment apply by topical route 2 times every day a thin layer to the affected area(s) as needed Not Available - Active CALTRATE 600 + D (unknown strength) take 1 tablet by mouth daily Not Available - Active famotidine 40 mg tablet take 1 tablet by oral route every day at bedtime 40 MG - Active meloxicam 15 mg tablet take 1 tablet by oral route every day 15 MG - Active triamcinolone acetonide 0.1 % topical cream apply by topical route 2 times every day a thin layer to the affected area(s) as needed 0.00 - Active Procedures Procedure Date NUC-Cardiolite/Per Dose [...] Providers Copied on Encounter Cardi[facility], [address] [facility] [address], [place], [address], [place] tel:[phone] DX Brewster CVM Precordial painFamily history of ischemic heart disease and other diseases of the circulatory systemGastro -esophageal reflux disease without esophagitis CVM CLINIC. Cardiovascu lar Medicine. Referring Provider: Andres Krishnamurthy, Cardi[facility] [address], [address]. tel:[phone] [facility]ov[facility] lar [facility], [address], [place], [address], [place] tel:[phone] DX Cardenas CVM Precordial painFamily history of ischemic heart disease and other diseases of the circulatory systemEncoun ter for screening for lipoid disordersHyp othyroidism, unspecified 4 Eduard Campos. [facility], [address], [place], [place], [id number], [place]. tel:[phone] Referring Provider: Andres Krishnamurthy, [facility] [address], [place], [address]. tel:[phone] [facility], [address], [place], [address], [place] tel:[phone] DX Brewster CVM Family history of ischemic heart disease and other diseases of the circulatory systemTobacc o use 4 Reinier Royal. [facility], [address], [place], [place], [id number], [place]. tel:[phone] Referring Provider: Andres Krishnamurthy, [facility] [address], [place], [address]. tel:[phone] [facility], [address], [place], [address], [place] tel:[phone] DX [place] CVM No Information 4 Laura Ellison. [facility], [address], [place], [place], [id number], [place]. tel:[phone] Referring Provider: Andres Krishnamurthy, [facility] [address], [place], [address]. tel:[phone] New Pt Office Visit Level 4 Cardiovascu lar Medicine [facility], [address], [place], [address], [place] tel:[phone] Cardenas CVM cardiovascul ar evaluation (chief complaint) Precordial chest painFamily history of premature coronary artery diseaseLipid screeningTob acco useGERD without esophagitisH ypothyroidis m 4 Eduard Campos. [facility], [address], [place], [place], [id number], [place]. tel:[phone] Referring Provider: Keisha Clemente, [address] [place], [address]. tel:[phone] [facility]asc[facility], [address], [place], [address], [place] tel:[phone] Cardenas CVM No Information 4 Eduard Campos. [facility], [address], [place], [place], [id number], [place]. tel:[phone] Referring Provider: Keisha Clemente, [address] [place], [address]. tel:[phone] Cardiovascu lar Medicine [facility], [address], [place], [address], [place] tel:[phone] Cardenas CVM No Information 4 Eduard Campos. [facility], [address], [place], [place], [id number], [place]. tel:[phone] [facility], [address], [place], [address], [place] tel:[phone] Cardenas CVM No Information 1 Floyd Villarreal. [facility], [address], [place], [place], [id number], [place]. tel:[phone] Referring Provider: Elizabeth Vasquez, [facility] [address] [place] [address], [address]. tel:[phone] Cardiovascu lar Medicine [facility], [address], [place], [address], [place] tel:[phone] [place] CVM No Information 8 Pilo Alba. [facility], [address], [place], [place], [id number], [place]. tel:[phone] Referring Provider: Elizabeth Vasquez, [facility] [address] [place] [address], [address]. tel:[phone] Cardiovascu lar Medicine [facility], [address] [facility] [address], [place], [address], [place] tel:[phone] [place] CVM No Information 3 Floyd Villarreal. [facility], [address], [place], [place], [id number], [place]. tel:[phone] Referring Provider: Elizabeth Vasquez, [facility] [address] [place] [address], [address]. tel:[phone] [facility]ovasc[facility] lar Medicine [facility], [address] [facility] [address] [facility], [place], [address], [place] tel:[phone] [place] CVM No Information 3 Quinton Sarkar. [facility] , [address], [place], [place], [id number], [place]. tel:[phone] Referring Provider: Elizabeth Vasquez, [facility] [address] [place] [address], [address]. tel:[phone] Family History Family Member Type Diagnosis Age At Onset Father Problem Depression Mother Problem Hypertension Mother Problem Coronary artery disease Father Problem Hypertension Father Problem Diabetes mellitus Payers Payer name Insurance type Covered democrat ID Authorbrandona jayna(s) [facility] [id number] Social History Type Description Quantity Date Captured [...] cardiovascular evaluation Her Gr andmother of an [place] in her late 40s. Her father had [...] She drinks alcohol occasionally. She lives in [place], [place]. She is a aeronautical engineer in the area. She is single with 2 children. Functional Status Date Functional Assessmen t No Information Instructions Date Instruction Additional Sonnyr emiliano PCP Wellness Visit Assessments Type Assessment Date No Information Patient Care Teams Name Effective Dates (start - stop) Status Members No Information
--- OUTSIDE RECORDS SUMMARY | 2024-07-07 00:46 | XMS_ITS | Continuity of Care Document ---
Author Organization [facility] Address [address] [place] [address] Phone Care Team Providers Care Intervention Teacher Name Role Phone Clau Santiago Unavailable Unavailable [...] OV - Established Patient [facility], [address] [place] [address], [id number], [place] tel:[phone] [facility] [place] Personal history of urinary (tract) infections 5 Jeffy Olguin. [address] [place] [address], [id number] , [place]. tel:[phone] Referring Provider: Garrison Hanks, [address] [place] [address], [address]. tel:[phone] OV - New Patient [facility] , [address] [place] [address], [id number], [place] tel:[phone] [facility] Cardenas Urinary tract infection, site not specifiedFrequenc y of micturition 4 Sis Julien. [address] [place] [address], [id number] , [place]. tel:[phone] Referring Provider: Garrison Hanks, [address] [place] [address], [address]. tel:[phone] [facility] , [address] [place] [address], [id number], [place] tel:[phone] [facility] [place] No Information 4 Walter Candelario. [address] [place] [address], [id number] , [place]. tel:[phone] Offic/outpt E&m Estab Low-mod [facility] , [address] [place] [address], [id number], tel:[phone] [facility] [place] No Information [facility] Ghasoub. [address] [place] [address], [id number] , . tel:[phone] Offic/outpt E&m Estab Low-mod [facility] , [address] [place] [address], [id number], tel:[phone] [facility] [place] No Information [facility] Ghasoub. [address] [place] [address], [id number] , [place]. tel:[phone] Offic Cons New/estab Mod-hi 60 [facility] , [address] [place] [address], [id number], tel:[phone] [facility] [place] No Information [facility] Kristoferasoub. [address] [place] [address], [id number] , . [phone] Referring Provider: Per Clemente, [address] [place], [address]. tel:[phone] Family History Family Member Type Diagnosis Age At Onset No Information Payers Payer name Insurance type Covered green party ID Dieter dorantes(s) [facility] [id number] Social History Type Description Quantity Date Captured [...]
--- OUTSIDE RECORDS SUMMARY | 2024-07-07 00:46 | XMS_ITS | Referral Summary ---
Author Organization [facility] Address [address] [place] [address] Care Team Providers Care Sustainable Agriculture Faculty Name Role Phone Andrews Kent MD Primary Care Provider [phone] Andrews Kent MD Unavailable [phone] Encounters Date Type Department Care Team Description 06/15/2024 5:15 PM CDT Office Visit [facility] [address] [place] [address] Radha Palafox, KELSEA Sore throat [...] 06/15/2024 5:18 PM CDT Radha FernandoIna Palafox HAND WELT BUTTER POINT OF CARE TEST ORDERAB LES Final Result from Last 3 Months Insurance [facility] [id number] [facility] [id number] Care Teams Sustainable Agriculture Faculty Relationship Specialty Start Date End Date Andrews Kent MD [address] [place] [address] PCP - General Internal Medicine 05/14/18 Andrews Kent MD [address] [place] [address] Internal Medicine 05/14/18
--- OUTSIDE RECORDS SUMMARY | 2024-07-07 00:46 | XMS_ITS | Encounter Summary ---
Author Organization [facility] Address [address] [place] [address] Phone Care Team Providers Care Waste Disposal Plant Operator Name Role Phone Andrews Kent MD Primary Care Provider [phone] Reason for Visit * Reason Comments Medication Refill Encounter Details Date Type Department Care Team ([facility] st Contact Info) Description 12/05/2019 Refill [facility] - [place] [address] [place] [id number] Andrews Kent MD [address] [place] [address] Medication Refill Social History Tobacco Use Types Packs/Day Years Used Date Smoking Tobacco: Never Assessed PHQ-2 Answer Date Recorded Total Score - Questions 1-9 0 11/12 Comments Unknown Sex and Gender Information Value Date Recorded Sex Assigned at Not on file Legal Sex Female 1:44 PM CDT Gender Identity Not on file Sexual Orientation Not on file COVID-19 Exposure Response Date Recorded In the last month, have you been in contact with someone who was confirmed or suspected to have Coronavirus / COVID-19? No / Unsure 12/08/2019 2:16 PM CDT documented as of this encounter Miscellaneous Notes * Telephone Encounter - Bree Camejo RN - 12/07/2019 8:30 AM CDT Please review and sign. documented in this encounter Plan of Treatment Upcoming Encounters Date Type Department Care Team (Late st Contact Info) Description 07/14/2024 8:00 AM CDT Office Visit [facility] - [facility] [place] [address] [place] [address] Andrews Kent MD [address] [place] [address] documented as of this encounter Visit Diagnoses Not on filedocumented in this encounter Care Teams Waste Disposal Plant Operator Relationship Specialty Start Date End Date Andrews Kent MD [address] [place] [address] PCP - General Internal Medicine 03/30/19 documented as of this encounter
--- OUTSIDE RECORDS SUMMARY | 2024-07-07 00:46 | XMS_ITS | Clinical Summary ---
Author Organization [facility] Address [address] [place] [address] Care Team Providers Care Sales Center Associate Name Role Phone Andrews Kent MD Primary Care Provider [phone] Andrews Kent MD Unavailable [phone] Allergies No known active allergies Medications hydroCHLOROthia [...] Description 06/15/2024 5:15 PM CDT Office Visit [facility] [place] [address] [place] [address] Radha Palafox, KELSEA Sore throat [...] Final Result from Last 3 Months Insurance [facility] [id number] [facility] [id number] Member Subscriber Plan / Payer (Ef fective 2020-Present) Name:Brenda Johansen Member ID:[id number] Relation to Subscriber:Self Name:Brenda Johansen Subscriber ID:[id number] Payer ID:[id number] Type:Inside Secure HMO/PPO Address: [place] [id number] [place] [id number] Care Teams Sales Center Associate Relationship Specialty Start Date End Date Andrews Kent MD [address] [place] [address] PCP - General Internal Medicine 05/14/18 Andrews Kent MD [address] [place] [address] Internal Medicine 05/14/18
--- OUTSIDE RECORDS SUMMARY | 2024-07-07 00:46 | XMS_ITS | Encounter Summary ---
Author Organization [facility] Address [address] [place] [address] Phone Care Team Providers Care Manifest/Order Organizer Print Orders Name Role Phone Andrews Kent MD Primary Care Provider [phone] Reason for Visit * Reason Comments Medication Refill Encounter Details Date Type Department Care Team ([facility] st Contact Info) Description 09/13/2022 Refill [facility] - [place] [address] [place] [address] Candy Jimenez, [facility] [address] [facility] [place] [address] Medication Refill Social History Tobacco Use Types Packs/Day Years Used Date Smoking Tobacco: Former Cigarettes Q uit: 07/08/2003 Passive Smoke Exposure: Past Smokeless Tobacco: Never Alcohol Use Standard Drinks/Week Comments Not Currently 0 (1 standard drink = 0.6 oz pur e alcohol) PHQ-2 Answer Date Recorded Total Score - Questions 1-9 0 06/11 Education Answer Date Recorded What is the [...] encounter Miscellaneous Notes * Telephone Encounter - Morenita Austin RN - 09/14/2022 2:18 PM CDT Name from pharmacy: FOSINOPRIL SODIUM 20 MG TAB Will file in chart as: fosinopril (MONOPRIL) 20 MG Tablet The original prescription was discontinued on 06/27/2022 by Andrews Kent MD for the followingreason: Dose adjustment. documented in this encounter Plan of Treatment Upcoming Encounters Date Type Department Care Team (Late st Contact Info) Description 07/14/2024 8:00 AM CDT Office Visit [facility] - Internal Medicine [facility] [address] [place] [address] Andrews Kent MD [address] [place] [address] documented as of this encounter Visit Diagnoses Not on filedocumented in this encounter Additional Health Concerns Assessment Noted Time PHQ-9 Depression Total Score: 0 06/08/19 21 1:00 PM CDT documented as of this encounter Care Teams Manifest/Order Organizer Print Orders Relationship Specialty Start Date End Date Andrews Kent MD [address] [place] [address] PCP - General Internal Medicine 03/30/19 documented as of this encounter
--- OUTSIDE RECORDS SUMMARY | 2024-07-07 00:46 | XMS_ITS | Encounter Summary ---
Author Organization [facility] Address [address] [place] [address] Phone Care Team Providers Care Rn Medical Surgical Name Role Phone Andrews Kent MD Primary Care Provider [phone] Reason for Visit * Reason Comments Medication Refill Encounter Details Date Type Department Care Team ([facility] st Contact Info) Description 04/27/2023 Refill [facility] - [place] [address] [place] [phone] Andrews Kent MD [address] [place] [address] Medication Refill Social History Tobacco [...] Telephone Encounter - Janay [place] RN - 04/29/2023 10:05 AM CDT Medication failed the protocol, provider to review and approve the medication order if appropriate. Requested Prescriptions Pending Prescriptions Disp Refills meloxicam (MOBIC) 7.5 MG Tablet [Pharmacy Med Name: MELOXICAM 7.5 MG TABLET] 30 Tablet 3 Sig: Take 1 Tablet by mouth daily as needed for Mild or more severe pain. NSAIDs Protocol Failed - 04/27/2023 7:26 AM Failed - Normal serum creatinine in past 12 months No results found for: CREATININE Failed - AST less than 55 or ALT less than 90 in past 12 months No results found for: SGOTAST No results found for: SGPTALT Failed - HGB greater than 10 or HCT greater than 30 in past 12 months No results found for: HEMOGLOBIN , HEMATOCRIT Passed - No positive test in the past 12 months or most recent test was negative Passed - Visit with relevant provider in past 12 months or upcoming 90 days Recent Visits Date Type Provider Dept 12/27/22 Office Visit Andrews Kent MD [facility] 06/27/22 Office Visit [facility] [place] Showing recent visits within past 365 days and meeting all other requirements Future Appointments Date Type Provider Dept 06/27/23 Appointment Andrews Kent MD [facility] [place] Showing future appointments within next 90 days and meeting all other requirements Passed - No active on record Passed - No matching NSAID med order in past 45 days No matching medication orders between 03/15/2023 10:05 AM and 04/29/2023 10:05 AM documented in this encounter Plan of Treatment Upcoming Encounters Date Type Department Care Team (Late st Contact Info) Description 07/14/2024 8:00 AM CDT [facility] Visit [facility] [place] [address] [place] [address] Andrews Kent MD [address] [place] [address] documented as of this encounter Visit Diagnoses Not on filedocumented in this encounter Additional Health Concerns Assessment Noted Time PHQ-9 Depression Total Score: 0 06/08/19 21 1:00 PM CDT documented as of this encounter Care Teams Rn Medical Surgical Relationship Specialty Start Date End Date Andrews Kent MD [address] [place] [address] PCP - General Internal Medicine 03/30/19 documented as of this encounter
[2024-07-07] MEDS: ACETAMINOPHEN 500 MG TABLET 1000 MG PO (08:55)
[2024-07-07] MEDS: LACTATED RINGERS 1,000 ML 30 ML IV CONT (09:00)
--- NOTE | 2024-07-07 09:10 | P.HP_ITS ---
H&P: HPI History of Present Illness Date/Time: 07/07/24 09:10 Chief Complaint: Abnormal uterine bleeding Narrative: This patient is a 53-year-old female with abnormal uterine bleeding and endometrial polyp. We agreed to perform hysteroscopy D and C with possible polypectomy. She understands risks, benefits, and alternatives. She has completed the informed consent process is ready to proceed The patient understands the details of the procedure. The procedure has been explained in detail. She understands the risks. She understands that injuries may occur that result in hospitalization, more surgery, and severe illness. She understands risk of hemorrhage and infection. She denies any chest pain or shortness of breath. She denies any nausea, vomiting, fever, chills. Review of Systems Review of Systems: All systems reviewed & are unremarkable except as noted in HPI and below Constitutional: Constitutional: Denies chills, Denies fatigue, Denies fever(s) and Denies weakness Eyes: Eyes: Denies blurry vision, Denies change in vision, Denies loss of peripheral vision, Denies loss of vision, Denies other visual disturbances and Denies eye pain ENT: Denies vertigo, Denies dizziness, Denies hearing loss, Denies mouth pain, Denies nasal obstruction, Denies neck mass and Denies neck pain Cardiovascular: Cardiovascular: Denies chest pain, Denies diaphoresis, Denies syncope, Denies leg edema and Denies dyspnea Respiratory: Respiratory: Denies chest congestion, Denies cough, Denies hemoptysis, Denies dyspnea and Denies wheezing Gastrointestinal: Gastrointestinal: Denies abdominal pain, Denies constipation, Denies diarrhea, Denies nausea and Denies vomiting Genitourinary: Genitourinary: Denies hematuria, Denies change in libido, Denies nocturia, Denies genital lesions, Denies flank pain and Denies urinary urgency Musculoskeletal: Musculoskeletal: Denies abnormal gait, Denies back pain, Denies myalgias, Denies arthralgias, Denies joint swelling, Denies muscle weakness and Denies neck pain Integumentary/Breasts: Skin/Breast: Denies swelling, Denies breast pain, Denies breast mass, Denies dry skin, Denies nipple discharge, Denies unusual bruising and Denies jaundice Neurologic: Denies Neuro-related abnormal movements, Denies Abnormal speech present, Denies abnormal gait, Denies behavioral changes, Denies confusion, Denies vertigo, Denies dizziness, Denies syncope, Denies loss of vision, Denies memory loss, Denies convulsions and Denies weakness Psychiatric: Psychiatric: Denies abnormal sleep pattern, Denies behavioral changes, Denies change in libido, Denies confusion, Denies depression, Denies anhedonia and Denies memory loss Endocrine: Endocrine: Reports no additional endocrine complaints, Denies change in libido and Denies fatigue Hematologic/Lymphatic: Hematologic/Lymphatic: Reports no additional hematologic/lymphatic complaints Allergic/Immunologic: Allergic/Immunologic: Reports no additional allergic/immunologic complaints and Denies wheezing [facility] Family History Family History (Updated 05/26/15 @ 10:27 by DOCTOR UNKNOWN) Other Diabetes mellitus Social History Social History Smoking packs per day: 1 Smoking cigarettes per day: 20.0 Years smoked: 10 Smoking pack-years: 10.00 Smoking status: Former smoker Tobacco type: cigarettes Additional smoking assessment comments: QUIT 2003 Alcohol intake: current Alcohol use details: RARE USE Living arrangements: with family Meds Home Medications and Allergies Home Medications ?Medication ?Instructions ?Recorded ?Confirmed ?Type ascorbate calcium (vitamin C) 814 500 mg PO DAILY 06/25/24 07/07/24 History mg/gram oral powder (Vitamin C (ascorbate calcium)) fosinopril 40 mg tablet 40 mg PO DAILY 06/25/24 07/07/24 History hydrochlorothiazide 25 mg tablet 25 mg PO DAILY 06/25/24 07/07/24 History multivit with minerals-iron 18 1 tablet PO DAILY 06/25/24 07/07/24 History mg-folic ac 400 mcg-vit K 25 mcg tablet (Adults Multivitamin) Allergies Allergy/AdvReac Type Severity Reaction Status Date / Time No Known Allergies Allergy Verified 07/07/24 09:03 Exam Const: General: cooperative, healthy appearing, comfortable and no acute distress Orientation/consciousness: oriented to person, oriented to place and oriented to time HENMT: Head: normal to inspection Ears: external ears normal Face/Nose/Sinus: Normal external nose present and normal facial exam Face and sinus: normal facial exam Eyes: General: appearance normal, both eyes and all related structures Neck: Neck: normal visual inspection, trachea midline and supple Resp: Auscultation: clear to auscultation bilaterally, no crackles, no rales, no rhonchi and no wheezes Cardio: Rate: regular rate Rhythm: regular rhythm Heart sounds: no click, no murmurs and no rubs GI: GI Palp: No abdominal tenderness, No Soft to palpation, No Tenderness to palpation present (GI) and No Palpable mass present Auscultation: normal bowel sounds Skin: General skin exam: normal color and no rashes or lesions noted Neuro: General: oriented to person, oriented to place and oriented to time Extrem: General: normal to inspection, no joint enlargement, no clubbing, cyanosis or edema, no pedal edema and no calf tenderness Psych: Appearance: grossly normal Mental Status: mental status grossly normal Speech and movement: Normal speech and movement present Assessment and Plan Assessment and plan (1) Abnormal uterine bleeding: Code(s): N93.9 - Abnormal uterine and vaginal bleeding, unspecified Status: Acute (2) Endometrial polyp: Code(s): N84.0 - Polyp of corpus uteri Status: Acute Plan This patient is a 53-year-old female with abnormal uterine bleeding and endome trial polyp. We agreed to perform hysteroscopy D and C with possible polypectomy. She understands risks, benefits, and alternatives. She has completed the informed consent process is ready to proceed
--- NOTE | 2024-07-07 09:13 | WPDHPUPDATE1 ---
History and Physical Update Update Date/Time: 07/07/24 09:13 History and Physical has been reviewed, including an updated exam of the patient. There are NO changes in the patient's condition. Risks, benefits, and alternatives have been discussed and questions answered. Patient agrees to proceed with procedure.
--- NOTE | 2024-07-07 09:19 | P.PNAN_ITS ---
Anes - Initial Pre Proc Eval Procedure: Operation Date: 07/07/24 10:30 Proposed Procedures p Hysteroscopy with Biopsy of Endometrium and/or Polypectomy - Navid Cespedes MD Date/Time: 07/07/24 09:19 Surgeon: Navid Cespedes MD Pre Op Diagnosis: Endometrial Polyp Patient Data Age: 53 Gender: F Height: 1.6 m Weight: 96 kg Allergies Allergy/AdvReac Type Severity Reaction Status Date / Time No Known Allergies Allergy Verified 07/07/24 09:03 Home Medications ?Medication ?Instructions ?Recorded ?Confirmed ?Type ascorbate calcium (vitamin C) 814 500 mg PO DAILY 06/25/24 07/07/24 History mg/gram oral powder (Vitamin C (ascorbate calcium)) fosinopril 40 mg tablet 40 mg PO DAILY 06/25/24 07/07/24 History hydrochlorothiazide 25 mg tablet 25 mg PO DAILY 06/25/24 07/07/24 History multivit with minerals-iron 18 1 tablet PO DAILY 06/25/24 07/07/24 History mg-folic ac 400 mcg-vit K 25 mcg tablet (Adults Multivitamin) Patient hx anesthesia problems: post op nausea/vomiting Family hx anesthesia problems: none Results Review: All pre-operative results and documents have been reviewed as part of the pre- operative evaluation. PMFSH Family History Family History Other Diabetes mellitus Social History Social History Smoking packs per day: 1 Smoking cigarettes per day: 20.0 Years smoked: 10 Smoking pack-years: 10.00 Smoking status: Former smoker Tobacco type: cigarettes Additional smoking assessment comments: QUIT 2004 Alcohol intake: current Alcohol use details: RARE USE Living arrangements: with family Anes - Eval Final PreProcedure Day of Procedure 07/07/24 09:19 Patient weight: obese Lungs: normal air movement Airway: Mallampati scale class II Neurological: alert and oriented Last oral intake: >/= 8 hours ASA classification: III Emergent: no Anesthetic plan: proceed Anesthesia type and monitoring: general GIVS and standard monitoring Results Review: All pre-operative results and documents have been reviewed as part of the pre-operative evaluation. HTN. BMI 37. Informed Consent: The patient's anesthetic plan and its attendant risks and benefits were discussed with the patient/family/POA. Questions were solicited and answers provided to the satisfaction of the patient/family/POA.
[2024-07-07] MEDS: SCOPOLAMINE 1 MG PATCH 1 PATCH TRANSDERM (09:20)
[2024-07-07 09:26] VITALS: BP 163/87; PULSE 70; RESP 16; TEMP 36.8; O2SAT 100
[2024-07-07 09:28] VITALS: BMI 37.9
[2024-07-07 09:30] LABS: BEDSIDEPREGUCG Negative (Negative)
[2024-07-07 09:50] VITALS: BP 153/79; PULSE 67; RESP 14; O2SAT 94
--- NOTE | 2024-07-07 10:01 | W.PM.PROC2 ---
Procedure Note - Detailed Date of Procedure 07/07/24 Pre-op Diagnosis Endometrial Polyp Post-op Diagnosis Same Procedure Performed Hysteroscopy D&C Surgeon Navid Cespedes MD Anesthesia MAC Indications abnormal uterine bleeding Findings Three endometrial polyps of varying sizes. All moderate in size. Normal vulva, vagina, and cervix. Description of Procedure the patient was taken the operating room. She was prepped and draped in the dorsal lithotomy position after induction of mac anesthesia. A speculum was placed in the vagina. The cervix was grasped with a tenaculum. The cervix was dilated about 1 cm. The hysteroscope was inserted. The intrauterine cavity and endocervix were evaluated. Hysteroscope was withdrawn. A rotational blade was used to resect 3 separate polyps in the endometrium. A medium-size curette was used to curettage all the surfaces were within the endometrial cavity. the sample was collected on Telfa and sent to pathology. The hysteroscope was reinserted and the above findings were noted. Patient tolerated the procedure well. The speculum and tenaculum were removed. She was taken recovery room in stable condition. Sponge lap and needle counts were correct x2. Estimated Blood Loss 40 Drains No Packing No Pathology Yes Complications No immediate complications Condition Stable Disposition PACU
[2024-07-07 10:20] VITALS: BP 154/78; PULSE 63; RESP 16; O2SAT 97
[2024-07-07 10:40] VITALS: BP 169/81; PULSE 60; RESP 16
== END 2024-07-07 10:50 | disposition home or self-care (01) ==
PROVIDERS: PCP Internal Medicine; Visit Provider Obstetrics & Gynecology
PROC: 0U5B8ZZ Destruction of Endometrium, Via Natural or Artificial Opening Endoscopic (ICD-10-PCS; CPT 58563; principal; 2024-07-07 10:30)
DX: N84.0 Polyp of corpus uteri (principal); E11.9 Type 2 diabetes mellitus without complications; I10 Essential (primary) hypertension; E66.9 Obesity, unspecified; Z68.38 Body mass index [BMI] 38.0-38.9, adult; Z87.891 Personal history of nicotine dependence
CPT/HCPCS: 58558; 88305; A9270; J2250; J2704; J3010; J7120

== ENCOUNTER 2024-08-21 07:38 | Outpatient (CLI) | payer OTHER, SELFPAY ==
--- NOTE | ~2024-08-21 | MM_ITS ---
EXAMINATION: MM screening [facility] BI w corey HISTORY: Screening mammogram TECHNIQUE: Craniocaudal and mediolateral oblique 3-D tomosynthesis images were obtained and synthetic 2-D images were generated. CAD analysis was submitted and interpreted. COMPARISON: 11/28/2022, 09/27/2020 BREAST PARENCHYMAL COMPOSITION:Not Dense. The breasts are almost entirely fatty FINDINGS: There is an increasing 5 mm mass of the upper, outer left breast, middle depth. Stable pare nchymal appearance of the right breast. No suspicious microcalcifications. IMPRESSION: Increasing 5 mm upper, outer left breast mass. Spot compression views and ultrasound are recommended for further evaluation. BI-RADS Category 0: Incomplete: Needs additional imaging evaluation. Reviewed, dictated and finalized at [facility]. IMPRESSION: Increasing 5 mm upper, outer left breast mass. Spot compression views and ultra sound are recommended for further evaluation. BI-RADS Category 0: Incomplete: Needs additional imaging evaluation.
--- OUTSIDE RECORDS SUMMARY | 2024-08-21 07:44 | XMS_ITS | Referral Summary ---
Author Organization [facility] Office Building [facility] Address [address] [place] [address] Care Team Providers Care Waste Examiner Name Role Phone Andrews Kent MD Primary Care Provider [phone] Andrews Kent MD Unavailable [phone] Encounters Date Type Department Care Team Description 06/15/2024 5:15 PM CDT Office Visit [facility] [place] [address] [place] [address] Radha Palafox, KELSEA Sore throat (Primary Dx); Pharyngitis, unspecified etiology from Last 3 Months Allergies No known active allergies Medications hydroCHLOROthia zide (HYDRODIURIL) 25 mg tablet Take 1 tablet (25 mg total) by mouth daily 9 Active multivitamin capsule Take 1 capsule by mouth daily Active ascorbic acid, vitamin C, 125 mg tablet,chewable Take by mouth Active meloxicam (MOBIC) 15 mg tablet Take 1 tablet (15 mg total) by mouth daily Active albuterol HFA (PROVENTIL HFA,VENTOLIN HFA,PROAIR HFA) 90 mcg/actuation inhaler Inhale 2 puffs every 6 (six) hours as needed for wheezing 1 each 4 02/04/20 25 Active Additional Information Patient not taking.Reported on 06/15/2024 fosinopriL (MONOPRIL) 40 mg tablet Take 1 tablet (40 mg total) by mouth daily Active Active Problems Problem Noted Date Diagnosed [...] P M CDT Height 160 cm (5' 3) 06/15/2024 5:09 PM CDT Body Mass Index [...] Final Result from Last 3 Months Insurance [facility] [id number] [facility] [id number] Member Subscriber Plan / Payer (Ef fective 2020-Present) Name:Brenda Johansen Member ID:[id number] Relation to Subscriber:Self Name:Brenda Johansen Subscriber ID:[id number] Payer ID:[id number] Type:[employer] HMO/PPO Address: [id number] [place] [id number] Care Teams Waste Examiner Relationship Specialty Start Date End Date Andrews Kent MD [address] [place] [address] PCP - General Internal Medicine 05/14/18 Andrews Kent MD [address] [place] [address] Internal Medicine 05/14/18
--- OUTSIDE RECORDS SUMMARY | 2024-08-21 07:44 | XMS_ITS | Encounter Summary ---
Author Organization [facility] Address [address] [place] [address] Phone Care Team Providers Care Optoelectronic Technician Name Role Phone Andrews Kent MD Primary Care Provider [phone] Reason for Visit * Reason Comments Medication Refill Encounter Details Date Type Department Care Team ([facility] st Contact Info) Description 01/20/2022 Refill [facility] [address] [place] [phone] Andrews Kent MD [address] [place] [address] Medication Refill Social History Tobacco [...] Coronavirus/COVID-19? No / Unsure 12/28/2021 8:20 AM ASSOCIATE PROFESSOR documented as of this encounter Miscellaneous Notes [...] Dept 12/28/21 Office Visit Andrews Kent MD [facility] [place] 06/22/21 Office Visit Andrews Kent MD [facility] [place] Showing recent visits within past 365 days and meeting all other requirements Future Appointments No visits were found meeting these conditions. Showing future appointments within next 90 days and meeting all other requirements CIATE PROFESSOR documented in this encounter Plan of Treatment Upcoming Encounters Date Type Department Care Team (Late st Contact Info) Description 01/14/2025 9:40 AM ASSOCIATE PROFESSOR Office Visit [facility] - [place] [address] [place] [phone] Andrews Kent MD [address] [place] [address] documented as of this encounter Visit Diagnoses Not on filedocumented in this encounter Additional Health Concerns Assessment Noted Time PHQ-9 Depression Total Score: 0 06/08/19 21 1:00 PM CDT documented as of this encounter Care Teams Optoelectronic Technician Relationship Specialty Start Date End Date Andrews Kent MD [address] [place] [address] PCP - General Internal Medicine 03/30/19 documented as of this encounter
--- OUTSIDE RECORDS SUMMARY | 2024-08-21 07:44 | XMS_ITS | Continuity of Care Document ---
Author Organization [facility] Address [address] [place] [address] Phone Care Team Providers Care Skilled Laborer Name Role Phone CVM, CLINIC Unavailable Unavailable [...] Providers Copied on Encounter Cardiovascu lar Medicine [facility], [address], [place], [address], [place] tel:[phone] DX Hermelinda CVM Precordial painFamily history of ischemic heart disease and other diseases of the circulatory systemGastro -esophageal reflux disease without esophagitis CVM CLINIC. [facility] Medicine. Referring Provider: Andres Krishnamurthy, [facility] [address], [address]. tel:[phone] Cardiovascu lar Medicine [facility], [address], [place], [address], [place] tel:[phone] DX Cardenas CVM Precordial painFamily history of ischemic heart disease and other diseases of the circulatory systemEncoun ter for screening for lipoid disordersHyp othyroidism, unspecified 4 Eduard Campos. [facility], [address], [place], [place], [id number], [place]. tel:[phone] Referring Provider: Andres Krishnamurthy, [facility] [address], [place], [address]. tel:[phone] Cardiovascu lar Medicine [facility], [address], [place], [address], [place] tel:[phone] DX Clifton CVM Family history of ischemic heart disease and other diseases of the circulatory systemTobacc o use 4 Reinier Royal. [facility], [address], [place], [place], [id number], [place]. tel:[phone] Referring Provider: Andres Krishnamurthy, [facility] [address], [place], [address]. tel:[phone] Cardiovascu lar Medicine [facility], [address], [place], [address], [place] tel:[phone] DX [place] CVM No Information 4 Laura Ellison. [facility], [address], [place], [place], [id number], [place]. tel:[phone] Referring Provider: Andres Krishnamurthy, [facility] [address], [place], [address]. tel:[phone] New Pt Office Visit Level 4 Cardiovascu lar Medicine [facility], [address], [place], [address], [place] tel:[phone] Cardenas CVM cardiovascul ar evaluation (chief complaint) Precordial chest painFamily history of premature coronary artery diseaseLipid screeningTob acco useGERD without esophagitisH ypothyroidis m 4 Eduard Campos. [facility], [address], [place], [place], [id number], [place]. tel:[phone] Referring Provider: Keisha Clemente, [address] [place], [address]. tel:[phone] Cardiovascu lar Medicine [facility], [address], [place], [address], [place] tel:[phone] Cardenas CVM No Information 4 Eduard Campos. [facility], [address], [place], [place], [id number], [place]. tel:[phone] Referring Provider: Keisha Clemente, [address] [place], [address]. tel:[phone] Cardiovascu lar Medicine [facility], [address], [place], [address], [place] tel:[phone] Cardenas CVM No Information 4 Eduard Campos. [facility], [address], [place], [place], [id number], [place]. tel:[phone] Cardiovasc[facility] lar Medicine [facility], [address], [place], [address], [place] tel:[phone] Cardenas CVM No Information 1 Floyd Villarreal. [facility], [address], [place], [place], [id number], [place]. tel:[phone] Referring Provider: Elizabeth Vasquez, [facility] [address] [place] [address], [address]. tel:[phone] Cardiovascu lar Medicine [facility], [address], [place], [address], [place] tel:[phone] [place] CVM No Information 8 Pilo Alba. [facility], [address], [place], [place], [id number], [place]. tel:[phone] Referring Provider: Elizabeth Vasquez, [facility] [address] [place] [address], [address]. tel:[phone] Cardiovascu lar Medicine [facility], [address], [place], [address], [place] tel:[phone] [place] CVM No Information 3 Floyd Villarreal. [facility], [address], [place], [place], [id number], [place]. tel:[phone] Referring Provider: Elizabeth Vasquez, [facility] [address] [place] [address], [address]. tel:[phone] Cardiovascu lar Medicine [facility], [address] [facility], [place], [address], [place] tel:[phone] [place] CVM No Information 3 Quinton Sarkar. [facility] , [address], [place], [place], [id number], [place]. tel:[phone] Referring Provider: Elizabeth Vasquez, [facility] [address] [place] [address], [address]. tel:[phone] Family History Family Member Type Diagnosis Age At Onset Father Problem Depression Mother Problem Hypertension Mother Problem Coronary artery disease Father Problem Hypertension Father Problem Diabetes mellitus Payers Payer name Insurance type Covered republican ID Authorbrandona jayna(s) [facility] [id number] Social History Type Description Quantity Date Captured [...] cardiovascular evaluation Her Gr andmother of an [place] in her late 40s. Her father had [...] She drinks alcohol occasionally. She lives in [place], [place]. She is a treatment specialist in the area. She is single with 2 children. Functional Status Date Functional Assessmen t No Information Instructions Date Instruction Additional Sonnyr emiliano PCP Wellness Visit Assessments Type Assessment Date No Information Patient Care Teams Name Effective Dates (start - stop) Status Members No Information
--- OUTSIDE RECORDS SUMMARY | 2024-08-21 07:44 | XMS_ITS | Continuity of Care Document ---
Author Organization [facility] Address [address] [place] [address] Phone Care Team Providers Care Quality Worker Name Role Phone Ivana DOZIER, Lidia Unavailable [...] Copied on Encounter [facility], [address] [place] [address], [id number], [place] tel:[phone] [facility] New No Information Ivana Murillo. [address] [place] [address], [id number], [place]. tel:[phone] OFFICE/OUTPA TIENT VISIT, NEW [facility], [address] [place] [address], [id number], [place] tel:[phone] [facility] Fibromyalgia syndrome (chief complaint) Fibromyalgia FatigueBody mass index (BMI) 34.0-34.9, adultNicotin e dependence, cigarettes, uncomplicate dSicca syndrome, unspecified 8 Geneva Angle. [address] [place], [place], [id number], [place]. tel:[phone] Referring Provider: [facility] [address] [place] [address], [address]. tel:[phone] Family History Family Member Type Diagnosis Age [...] rction Payers Payer name Insurance type Covered democrat ID Authoriza ticinthia(s) [facility] 12 [id number] Social History Type Description Quantity Date Captured [...]
--- OUTSIDE RECORDS SUMMARY | 2024-08-21 07:44 | XMS_ITS | Encounter Summary ---
Author Organization [facility] Address [address] [place] [address] Phone Care Team Providers Care Jr. Java Developer Name Role Phone Andrews Kent MD Primary Care Provider [phone] Reason for Visit * Reason Comments Medication Refill Encounter Details Date Type Department Care Team ([facility] st Contact Info) Description 12/05/2019 Refill [facility] [place] [address] [place] [id number] Andrews Kent MD [address] [facility] [place] [address] Medication Refill Social History Tobacco [...] st Contact Info) Description 01/14/2025 9:40 AM MACHINE RIGGER Office Visit [facility] [place] [address] [place] [phone] Andrews Kent MD [address] [place] [address] documented as of this encounter Visit Diagnoses Not on filedocumented in this encounter Care Teams Jr. Java Developer Relationship Specialty Start Date End Date Andrews Kent MD [address] [place] [address] PCP - General Internal Medicine 03/30/19 documented as of this encounter
--- OUTSIDE RECORDS SUMMARY | 2024-08-21 07:44 | XMS_ITS | Clinical Summary ---
Author Organization [facility] Building [facility] Address [address] [place] [address] Care Team Providers Care Events Traffic Controller Name Role Phone nAdrews Kent MD Primary Care Provider [phone] Andrews Kent MD Unavailable [phone] Allergies No known active allergies Medications hydroCHLOROthia [...] tablet (40 mg total) by mouth daily 5 Active Active Problems Problem Noted Date Diagnosed Date Spell of visual disturbance 05/14/2018 Encounters Date Type Department Care Team Description 06/15/2024 5:15 PM CDT Office Visit [facility] [place] [address] [place] [address] Radha Palafox, KELSEA Sore throat [...] Swab 06/15/2024 5:18 PM CDT Radha Palafox YEAST CULTURE DEVELOPER POINT OF CARE TEST ORDERAB LES Final Result from Last 3 Months Insurance [facility] [id number] [facility] [id number] Care Teams Events Traffic Controller Relationship Specialty Start Date End Date Andrews Kent MD [address] [place] [address] PCP - General Internal Medicine 05/14/18 Andrews Kent MD [address] [place] [address] Internal Medicine 05/14/18
--- OUTSIDE RECORDS SUMMARY | 2024-08-21 07:44 | XMS_ITS | Encounter Summary ---
Author Organization [facility] Address [address] [place] [address] Phone Care Team Providers Care Curing Room Worker Name Role Phone Andrews Kent MD Primary Care Provider [phone] Reason for Visit * Reason Comments Medication Refill Encounter Details Date Type Department Care Team ([facility] st Contact Info) Description 04/27/2023 Refill [facility] - [place] [address] [place] [phone] Andrews Kent MD [address] [place] [address] Medication Refill Social History Tobacco [...] past 12 months No results found for: HEMOGLOBIN, HEMATOCRIT Passed - No positive test in the past 12 months or most recent test was negative Passed - Visit with relevant provider in past 12 months or upcoming 90 days Recent Visits Date Type Provider Dept 12/27/22 Office Visit Andrews Kent MD [facility] [place] 06/27/22 [facility] [place] Showing recent visits within past 365 days and meeting all other requirements Future Appointments Date Type Provider Dept 06/27/23 Appointment Andrews Kent MD [facility] [place] Showing future appointments within next 90 days and meeting all other requirements Passed - No active on record Passed - No matching NSAID med order in past 45 days No matching medication orders between 03/15/2023 10:05 AM and 04/29/2023 10:05 AM documented in this encounter Plan of Treatment Upcoming Encounters Date Type Department Care Team (Late st Contact Info) Description 01/14/2025 9:40 AM BABBITT SPINNER Office Visit [facility] [place] [address] [place] [address] Andrews Kent MD [address] [place] [address] documented as of this encounter Visit Diagnoses Not on filedocumented in this encounter Additional Health Concerns Assessment Noted Time PHQ-9 Depression Total Score: 0 06/08/19 21 1:00 PM CDT documented as of this encounter Care Teams Curing Room Worker Relationship Specialty Start Date End Date Andrews Kent MD [address] [place] [address] PCP - General Internal Medicine 03/30/19 documented as of this encounter
--- OUTSIDE RECORDS SUMMARY | 2024-08-21 07:44 | XMS_ITS | Encounter Summary ---
Author Organization [facility] Address [address] [place] [address] Phone Care Team Providers Care Farm Rancher Name Role Phone Andrews Kent MD Primary Care Provider Reason for Visit * Reason Comments Medication Refill Encounter Details Date Type Department Care Team ([facility] Contact Info) Description 10/26/2019 Refill [facility] - [place] [address] [place] [phone] Andrews Kent MD [address] [place] [address] Medication Refill Social History Tobacco [...] st Contact Info) Description 01/14/2025 9:40 AM SEGMENTAL PAVER INSTALLER Office Visit [facility] [place] [address] [place] [phone] Andrews Kent MD [address] [place] [address] documented as of this encounter Visit Diagnoses Not on filedocumented in this encounter Care Teams Farm Rancher Relationship Specialty Start Date End Date Andrews Kent MD [address] [place] [address] PCP - General Internal Medicine 03/30/19 documented as of this encounter
--- OUTSIDE RECORDS SUMMARY | 2024-08-21 07:44 | XMS_ITS | Data Portability ---
Author Organization [facility] Address [address] [address] [address] Care Team Providers Care Leather Seasoner Name Role Phone GHAZALA BUCHANAN Primary Care Provider Assessment Encounter Date Assessment Date Assessment LastModified by Organization Details LastModified Time 04/20/2024 04/20/2024 Annual gynecological exam performed. Patient will come back in a year unless there are new symptoms. [email or web address] Not available 04/20/2024 09:17:43 Plan of Treatment Reminders Order Date Submit Date Provider Last Modified By Organization Details Last Modified Time Details Appointments None recorded. Lab None recorded. Referral None recorded. Procedures None recorded. Surgeries hysteroscop y, surgical, with biopsy of endometrium and/or polypectomy (SURG) 2024 025 [facility], [facility] [address], [place], [address], 11:04:38 Imaging US, pelvis [address], [address], [place], [address], 22:01:02 US, transvagina l [address], [address], [place], [address], 22:01:02 MAMMO, screening, digital, bilateral [address] [facility], [address], [place], [address], 5 15:38:59 Medication Orders None recorded. Patient TargetsNo targets recorded. Patient InstructionsNo instructions recorded. Reason for Referral None Reported. Results Created Date Observation Date Name Description Value Unit Range Abnormal Flag Note LastModifiedBy Organization Detail LastModifiedTime 04/21/1904/20/2024 IMAGE GUIDE D PAP AND HPV REGAR DLESS image guided Pap, HPV regardless of Pap result SEE RESULT S BELOW CASE REPOR T: Cytol ogy Gynec ologi chandrika Repor t Case: [id number] Autho jose g oanh Provi parrish: Natasha Hills, KELSEA Colle cted: 04/20 1019 Order ing Locat ion: [place] Patho logy Recei rosana: 04/21 0113 First Scree n: Melchor Zelaya, [place] Patho logis t: Karri Real MD Speci men: Ly patricia Pap - Image d, Cervi x STATE MENT OF ADEQU ACY: Satis facto ry for evalu ation Trans forma tion zone compo nent absen t ----- ----- ----- ----- ----- ----- ----- ----- ----- ----- ----- ----- ----- ----- ----- ----- ----- ---- FINAL DIAGN OSIS: Negat dwaine for Intra epith elial Lesio n or Terra strickland (NIL) . Endom etria l cells louisa nt. Soila fraire by Karri gibbs MD on 2024 [...] [facility] [address], [place], [address], 04/23/2024 14:19:49 05/05/19 25 05/04/2024 US, pelvi s No observ ation record ed. [email or web address] [facility] [address], [place], [address], 05/04/2024 16:13:25 05/05/19 25 05/04/2024 US, trans vagin al No observ ation record ed. [email or web address] [facility] [address], [place], [address], 05/04/2024 16:13:34 05/05/19 25 05/04/2024 US, pelvi s No observ ation record ed. [email or web address] [address], [place], [address], 05/06/2024 18:54:23 Result Notes None recorded. Problems Name Problem SNOMED Code Status Onset Date Resolution Date Notes Provider Name and Address Organization Details Recorded Time Hypertensive disorder 62372557 Active 2020 Lara Becker MD [address], [place], [address], [facility] 14:13:22 Body mass index 30+ - obesity 238329240 Active 2020 Lara Becker MD [address], [place], [address], [facility] 14:13:29 Problem Notes None recorded. Procedures Surgical History Date Name Laterality Status Provider Name and Address Organization Details Recorded Time 07/08/19 25 HYSTEROSCOPY, SURGICAL, WITH BIOPSY OF ENDOMETRIUM AND/OR POLYPECTOMY (SURG) completed Alee Cornejo [facility] 07/07/2024 16:06:02 04/21/19 25 Date of Last Pap Smear completed Alee Cornejo [facility] 05/25/2024 12:42:46 11/12/19 23 Date of Last Mammogram completed Ness Segovia [facility] 04/20/2024 09:27:41 02/11/18 97 Tubal Ligation completed [facility] 08/24/2020 09:36:52 02/11/18 96 Cholecystectomy completed [facility] 08/24/2020 09:36:43 02/11/18 95 delivery completed [facility] 08/24/2020 09:36:33 02/11/18 92 delivery completed [facility] 08/24/2020 09:36:23 Imaging Results None recorded. Procedure Notes None recorded. Medical Equipment None Reported. Allergies No known drug allergies Medications Name Sig Start Date Stop Date Status Note LastModified by Organization Details LastModified Time amoxicillin 500 mg capsule TAKE 1 CAPSULE BY MOUTH TWICE A DAY FOR 10 DAYS 07/17 completed Not Available Not Available Not Available benzonatate 200 mg capsule 04/20 completed [...] Updated DateTime 04/20/2024 162.56 cm 36 kg/m2 99126.96 g 156/85 mm[Hg] Ness Segovia [facility] 04/20/2024 09:25:16 Date Recorded Body height Body mass index (BMI) Body weight Systolic And Diastolic Provider Name and Address Organization Details Last Updated DateTime 05/25/2024 162.56 cm 36.9 kg/m2 90010.36 g 152/82 mm[Hg] Alee [facility] 05/25/2024 12:42:27 Date Recorded Body height Body mass index (BMI) Body weight Systolic And Diastolic Provider Name and Address Organization Details Last Updated DateTime 07/17/2024 162.56 cm 37.4 kg/m2 13035.14 g 152/81 mm[Hg] [facility] 07/17/2024 13:07:18 Social History Question Answer Notes LastModified by Cozmik Body Details LastModified Time Tobacco Smoking Status Never Smoker [facility]kins [facility] 08/24/2020 10:54:31 In The 14 Days [...] Functional Status Question Answer Note LastModified by Cozmik Body Details LastModified Time Do you use any [...] ) N Other N Drug/Latex Allergies/Reactions N Blood Transfusion N Breast Cancer N Dermatologic Disorders N Lung Disease N Defects or Inherited Disease N Breast Problem N Gestational Diabetes N Hematologic disorders N Anesthesia Complications N History of STI N Deep Vein Thrombosis N Polycystic ovary syndrome N Anxiety Disorder N Autoimmune disease N Arthritis N Polyps N Infertility N Acid Reflux (GERD) N History of abnormal pap N Cancer N Varicosities N Stroke N Neurologic/Epilepsy N Endometriosis N High Cholesterol N Fibromyalgia N Headaches N Kidney Disease N Heart Problems N [...] Last Pap Smear 04/20/2024 Sexual Problems? N Desired Control Method Ablation LMP Approximate Obstetrics History GPAL:G 2 P 2 0 0 2 Type Value Full Term 2 Living 2 Total 2 Past Encounters Encounter ID Performer Location Encounter Start Date Encounter Closed Date Diagnosis/Indication Diagnosis SNOMED-CT Code Diagnosis ICD10 Code Diagnosis Note [id number] Lara Becker MD [facility] [address] [address] 08/24/2020 10:45:48 08/25/2020 14:07:46 Gynecologic examination 83624102 Z01.419 Z11.51 [id number] [facility] [address] [address] 11/15/2022 13:57:09 11/15/2022 15:13:45 Gynecologic examination 60376684 Z01.419 Take Calcium with Vitamin D 12-1500mg daily. Do monthly self breast exams. It is advised to get annual flu shot in the fall and she could obtain at [facility] or [facility]. If you haven't received the Tdap vaccine [...] naRoutine Labs utd pcp Screening mammography 24 317084 Z12.31 [id number] Natasha Hills KELSEA [facility] [address] [address] 04/20/2024 09:10:17 04/20/2024 09:47:14 Gynecologic examination 91647808 Z01.419 WWEPap - done todaySTI screen - [...] answered. Screening for malignant neoplasm of breast 323810244 Z12.39 [id number] Navid Cespedes MD [facility] [address],[place] [address] 05/04/2024 09:53:18 05/04/2024 10:48:21 Irregular periods 77789629 N92.6 [id number] Navid Cespedes MD [facility] [address],[place] [address] 05/25/2024 12:25:10 05/25/2024 13:07:22 Abnormal uterine bleeding 0815078224 9100 N93.9 Endometrial polyp 430515 9045 N84.0 patient is a 53-year-ol d female [...] there is risk of hemorrhage and infection. [id number] Navid Cespedes MD [facility] [address],[place] [address] 07/07/2024 08:49:23 07/09/2024 13:36:57 [id number] Navid Cespedes MD [facility] [address],[place] [address] 07/17/2024 12:28:54 07/17/2024 14:34:29 Endometrial polyp 9300844614 N84.0 This patient is a 53-year-ol d female who presents in follow-up for endometria l polyps. Polyps were resected hysterosco pically. She has some slight spotting. Otherwise she is asymptomat ic. She denies any nausea, vomiting, fever, chills. She denies any foul-smell ing vaginal discharge. We will follow up as needed. Health Concerns Section Related Observation LastModified by Organization Detai ls LastModified Time None Recorded Concern Status LastModified by Organization Details LastModified Time None Recorded Advance Directives Directive None Recorded Payers Insurance Date Sequence Insurance Name Policy Number Policy Parrish Covered Member ID Parrish Member ID Guarantor Name 05/24/2024 1 [place] [id number] [id number] [address] 05/24/2024 1 [employer] - DOS PRIOR TO 20 - [facility] BENEFITS PLAN [id number] [id number] [address] 07/20/2024 1 [employer] - [facility] BENEFITS PLAN [id number] [id number] [address] Notes Date Note Type Note Provider Name and Address Organization Details Recorded Time 5 text/htm l Annual GYNReported bypatient.Menstrual cycle:Perimenopausal [...] (-)mammogram last ologuard done 2023 YFN Navarro [address], [place], [address], [place] - [facility] 04/20/2024 09:45:58 5 text/htm l patient [...] infection. Navid Cespedes MD [address], [place], [address], [facility] 05/25/2024 13:06:57 5 text/htm l This patient is a 53-year-old female who presents in follow-up for endometrial polyps. Polyps were resected hysteroscopically. She has some slight spotting. Otherwise she is asymptomatic. She denies any nausea, vomiting, fever, chills. She denies any foul-smelling vaginal discharge. We will follow up as needed. Navid Cespedes MD [address], [place], [address], [facility] 07/17/2024 14:33:21 OBGyn Episode Ob Episode Information Episode Created Date Number of Fetuses Patient Bloodtype Patient rh Status Prepregnancy Weight lbs Domestic Partner Domestic Partner Phone Father Name Activities Assistant Status 08/25/19 21 1 CLOSED Fetus Data First Name Last Name Admitted to NICU Weight (g) Sex Living Outcome Pediatric Complications Fetus ID Race Codes Race Delivery Type 4195.72 6 F Full Term [id number] Primary Abrahan Calculation Initial Abrahan Date Initial [...] Domestic Partner Domestic Partner Phone Father Name Activities Assistant Status 08/25/19 21 1 CLOSED Fetus Data First Name Last Name Admitted to NICU Weight (g) Sex Living Outcome Pediatric Complications Fetus ID Race Codes Race Delivery Type 3883.65 4704 F Full Term [id number] Primary Abrahan Calculation Initial Abrahan Date Initial [...]
--- OUTSIDE RECORDS SUMMARY | 2024-08-21 07:45 | XMS_ITS | Clinical Summary ---
Author Organization [facility] Care Team Providers Care Air Conditioning Service Technician Name Role Phone Andrews Kent MD Primary Care Provider [phone] Allergies No known active allergies Medications Ascorbic Acid 125 MG Chewable Tablet Take by mouth. Active Multiple Vitamin (Multivitamins) Capsule Take 1 Cap by mouth. Active Fosinopril Sodium 40 MG Tablet Take 1 Tablet by mouth daily. 90 Tablet 1 07/14/2024 Active hydroCHLOROthiaz juliana 25 MG Tablet Take 1 Tablet by mouth daily. 90 Tablet 1 07/14/2024 Active Active Problems Problem Noted Date Diagnosed Date Generalized osteoarthritis 12/16/2020 Migraine with aura 01/23/2013 Essential hypertension, benign 08/03/2010 Encounters Date Type Department Care Team Description 07/14/2024 8:00 AM CDT Office Visit [facility] [address] [place] [address] Andrews Kent MD Essential hypertension, benign (Primary Dx) Discharge Disposition: Discharged to home or Selfcare 07/14/2024 Travel 05/22/2024 Refill [facility] [address] [place] [address] Andrews Kent MD Medication Refill from Last [...] drink = 0.6 oz pur e alcohol) [facility] Utilities Answer Date Recorded In the past 12 months has th e electric, gas, oil, or water company threatened to shut off services in your home? No 06/25/2023 Social Connection and Isolation Panel Answer Date Recorded In a typical week, [...] any clubs o r organizations such as sabianist groups, unions, fraternal or athletic groups, or [...] Recorded Total Score - Questions 1-9 0 04/2024 [facility] [place] [facility] - Occupational Stress [...] place to sleep or slept in a retirement (including now)? No 06/25/2023 Education Answer Date [...] Sign Reading Time Taken Comments Blood Pressure 130/78 07/14/2024 7:57 AM CDT Pulse 78 07/14/2024 7:57 AM CDT Temperature 36.3 C (97.4 F) 07/14/2024 7:57 AM CDT Respiratory Rate 12 06/27/2023 8:30 AM CDT Oxygen Saturation 98% 07/14/2024 7:57 AM CDT Inhaled Oxygen Concentration - - Weight 97.5 kg (215 lb) 07/14/2024 7:57 AM CDT Height 160 cm (5' 3) 07/14/2024 7:57 AM CDT Body Mass Index 38.09 07/14/2024 7:57 AM CDT Plan of Treatment Upcoming Encounters Date Type Department Care Team (Late st Contact Info) Description 01/14/2025 9:40 AM KILN HAND Office Visit [facility] [place] [address] [place] [address] Andrews Kent MD [address] [place] [address] Health Maintenance Due Date Last Done Comments Hepatitis C Virus (HCV) Screening 1970 TdaP Immunization 1970 Hepatitis B Immunization (1 of 3 - 19+ 3-dose series) 1989 HPV/Cotest 2000 Colonoscopy 11/13/2015 Immunochemical Fecal Occult Blood 11/13/2015 Pneumococcal Immunization (5 0+ years) (1 of 1 - PCV) 2020 Zoster Immunization (1 of 2) 2020 SARS-COV-2 Immunization ( - season) 2023 Mammogram 11/29/2023 11/28/2022, 09/27/2020 Cervical Cancer Screening (CCS) 02/06/2025 Pap Smear 02/06/2025 02/06/2022, 07/25/2020 Cologuard 02/18/2027 02/19/2024, 12/23/2020 Colorectal Cancer Screening 02/18/2027 Respiratory Syncytial Virus (RSV) Immunization (Adult) (1 [...] Procedure Name Priority Date/Time Associated Diagnosis Comments PATHOLOGY SURGICAL 07/07/2024 12 :00 AM CDT UR TEST QUAL 07/07/2024 12:00 AM CDT OBG GYNE PROCEDURE 07/07/2024 12 :00 AM CDT BASIC METABOLIC PANEL W/ CALCIUM TOTAL 06/30/2024 12:00 AM CDT COLOGUARD Routine 02/19/2024 9:20 AM KILN HAND Screening for colorectal cancer MAMMOGRAM BILATERAL GENERIC 11/28/2022 12:00 AM CDT from Last 3 Months or Most Recently Relevant to Health Maintenance Results * OBG GYNE PROCEDURE (07/07/2024 12:00 AM CDT) 07/07/2024 us Provider Scan GEN ORDERS Final Result Performing Organization Address [facility] Co de Phone Number SCAN * PATHOLOGY SURGICAL (07/07/2024 12:00 AM CDT) 07/07/2024 us Provider Scan PATHOLOGY/CYTOLOGY ORDERABLES Fi nal Result Performing Organization Address [facility] Co de Phone Number SCAN * UR TEST QUAL (07/07/2024 12:00 AM CDT) 07/07/2024 us Provider Scan URINE ORDERABLES Final Result Performing Organization Address City/[facility]/ZIP Co de Phone Number SCAN * BASIC METABOLIC PANEL W/ CALCIUM TOTAL (06/30/2024 12:00 AM CDT) 06/30/2024 us Provider Scan CHEMISTRY ORDERABLES Final Resul t Performing Organization Address City/[facility] Co de Phone Number SCAN * COLOGUARD (02/19/2024 9:20 AM KILN HAND) Cologuard Negative Negative [facility] Comment: NEGATIVE TEST RESULT. A negative [...] Hodge et al, N Engl J Med 2014;370(14):7038-7440) The normal value (reference range) for this assay is negative. COLOGUARD RE-SCREENING RECOMMENDATION: Periodic colorectal cancer screening is an important part of preventive healthcare for asymptomatic individuals at average risk for colorectal cancer. Following a negative Cologuard result, the [place] Cancer Society and U.S. Multi-Society Task Force screening guidelines recommend a Cologuard re-screening interval of 3 years. References: [place] [employer] Society Guideline for Colorectal Cancer Screening: https://www.cancer.org/cancer/lbxzy-sacqro-vatjsp/nfgfmjazx-dvbxylprk-bmtksou/ acs-recommendations.html.; Natalio DK, Brock MORE, Vivian KrishnamurthyK, Colorectal Cancer Screening: Recommendations for Physicians and Patients from the U.S. Multi-Society Task Force on Colorectal Cancer Screening , Am J Gastroenterology 2017; 112:4495-7266. TEST DESCRIPTION: Composite algorithmic analysis of stool [...] (Prashanth Rios al, N Engl J Med 2014;370(14):0804-3957.) Cologuard may produce a false negative or false positive result (no colorectal cancer or precancerous polyp present at colonoscopy follow up). A negative Cologuard test result does not guarantee the absence of CRC or advanced adenoma (pre-cancer). The current Cologuard screening interval is every 3 years. ([place] Cancer Society and U.S. Multi-Society Task Force). Cologuard performance data in a 10,000 patient pivotal study using colonoscopy as the reference method can be accessed at the following location: www.[employer]/results. Additional description of the Cologuard test process, warnings and precautions can be found at www.cologuard.com. Stool 02/19/2024 9:20 AM KILN HAND 02/20/2024 8:10 AM KILN HAND Andrews Kent MD BODY FLUIDS & STOOLS ORDERA BLES Final Result Performing Organization Address [facility] de Phone Number [employer] [facility] [address] [place] [address], [employer] [address] [place] [address] * MAMMOGRAM BILATERAL MISCELLANEOUS (11/28/2022 12:00 AM CDT) 11/28/2022 Provider Scan IMG MAMMO ORDERABLES Final Resul t Performing Organization Address City/[facility] Co de Phone Number SCAN from Last 3 Months or Most Recently [place]vant [place] [address] [facility] OAP Care Teams Air Conditioning Service Technician Relationship Specialty Start Date End Date Andrews Kent MD [address] [place] [address] PCP - General Internal Medicine 03/30/19
--- OUTSIDE RECORDS SUMMARY | 2024-08-21 07:45 | XMS_ITS | Encounter Summary ---
Author Organization [facility] Address [address] [place] [address] Phone Care Team Providers Care Nutrition Worker Name Role Phone Andrews Kent MD Primary Care Provider [phone] Reason for Visit * Reason Comments Medication Refill Encounter Details Date Type Department Care Team ([facility] st Contact Info) Description 06/15/2022 [facility]ill [facility] [place] [address] [place] [address] Andrews Kent MD [address] [place] [address] Medication Refill Social History Tobacco [...] [place] 06/22/21 [facility] [place] Showing recent visits within past 365 days and meeting all other requirements Future Appointments Date Type Provider Dept 06/27/22 Appointment Andrews Kent MD [facility] [place] Showing future appointments within next 90 days and meeting all other requirements Passed - No active on record documented in this encounter Plan of Treatment Upcoming Encounters Date Type Department Care Team (Late st Contact Info) Description 01/14/2025 9:40 AM SUPERVISOR BOARDING [facility] [place] [address] [place] [address] Andrews Kent MD [address] [place] [address] documented as of this encounter Visit Diagnoses Not on filedocumented in this encounter Additional Health Concerns Assessment Noted Time PHQ-9 Depression Total Score: 0 06/08/19 21 1:00 PM CDT documented as of this encounter Care Teams Nutrition Worker Relationship Specialty Start Date End Date Andrews Kent MD [address] [place] [address] PCP - General Internal Medicine 03/30/19 documented as of this encounter
--- OUTSIDE RECORDS SUMMARY | 2024-08-21 07:45 | XMS_ITS | Continuity of Care Document ---
Author Organization [facility] Address [address] [place] [address] Phone Care Team Providers Care Critical Care Unit Manager Name Role Phone Clau Santiago Unavailable Unavailable [...] OV - Established Patient [facility], [address] [place] [address], [id number], [place] tel:[phone] [facility] Personal history of urinary (tract) infections 5 Jeffy Olguin. [address] [place] [address], [id number] , [place]. tel:[phone] Referring Provider: Garrison Hanks, [address] [place] [address], [id number]. tel:[phone] OV - New Patient [facility] , [address] [place] [address], [id number], [place] tel:[phone] [facility] [place] Urinary tract infection, site not specifiedFrequenc y of micturition 4 Sis Julien. [address] [place] [address], [id number] , [place]. tel:[phone] Referring Provider: Garrison Hanks, [address] [place] [address], [address]. tel:[phone] [facility] , [address] [place] [address], [id number], [place] tel:[phone] [facility] No Information 4 Walter Candelario. [address] [place] [address], [id number] , [place]. tel:[phone] Offic/outpt E&m Estab Low-mod [facility] , [address] [place] [address], [id number], tel:[phone] [facility] [place] No Information [facility] Ghasoub. [address] [place] [address], [id number] , . tel:[phone] Offic/outpt E&m Estab Low-mod [facility] , [address] [place] [address], [id number], tel:[phone] [facility] [place] No Information [facility] Ghasoub. [address] [place] [address], [id number] , [place]. tel:[phone] Offic Cons New/estab Mod-hi 60 [facility] , [address] [place] [address], [id number], tel:[phone] [facility] [place] No Information [facility] Kristoferasoub. [address] [place] [address], [id number] , . [phone] Referring Provider: Per Clemente, [address] [place], [address]. tel:[phone] Family History Family Member Type Diagnosis Age At Onset No Information Payers Payer name Insurance type Covered republican ID Dieter dorantes(s) [facility] [id number] Social History Type Description Quantity Date Captured [...]
--- OUTSIDE RECORDS SUMMARY | 2024-08-21 07:45 | XMS_ITS | Encounter Summary ---
Author Organization [facility] Address [address] [place] [address] Phone Care Team Providers Care Assistant Purchasing Manager Name Role Phone Andrews Kent MD Primary Care Provider [phone]- [phone] Reason for Visit * Reason Comments Medication Refill Encounter Details Date Type Department Care Team ([facility] st Contact Info) Description 09/13/2022 [facility]ill [facility] - [place] [address] [place] [address] Candy Jimenez, [facility] [address] [place] [address] Medication Refill Social History Tobacco Use Types [...] st Contact Info) Description 01/14/2025 9:40 AM PRACTICE MANAGEMENT CONSULTANT Office Visit [facility] - Internal Medicine [facility] [address] [place] [address] Andrews Kent MD [address] [place] [address] documented as of this encounter Visit Diagnoses Not on filedocumented in this encounter Additional Health Concerns Assessment Noted Time PHQ-9 Depression Total Score: 0 06/08/19 21 1:00 PM CDT documented as of this encounter Care Teams Assistant Purchasing Manager Relationship Specialty Start Date End Date Andrews Kent MD [address] [place] [address] PCP - General Internal Medicine 03/30/19 documented as of this encounter
--- OUTSIDE RECORDS SUMMARY | 2024-08-21 07:45 | XMS_ITS | Continuity of Care Document ---
Author Organization [facility] Address [address] [place] [address] Phone Care Team Providers Care Press Operator Assistant Name Role Phone Franc Anderson MD, MD Unavailable Unavailable Allergies, Adverse Reactions, Alerts Substance Reaction Status Criticality hydrocodone Active No Information Sulfa (Sulfonamide Antibiotics) hives Active No Information Medications Medication Instructions Dosage Effective Dates (start - stop) Status Comments flaxseed oil 1,000 mg capsule take 1 capsule by oral route 2 times every day 1 capsule - Active ANJESO (unknown strength) Not Available - Active LITTLE REMEDIES COUGH-IMMUNE (unknown strength) Not Available - Active FISH OIL (unknown strength) Not Available - Active BIOTIN (unknown strength) Not Available - Active MAGNESIUM (unknown strength) Not Available - Active PAPAYA ENZYME (unknown strength) Not Available - Active VITAMIN E (unknown strength) Not Available - Active VITAMIN D3 (unknown strength) Not Available - Active multivitamin capsule take 1 capsule by oral route every day - Active amitriptyline 10 mg tablet take 1 tablet by oral route every day 10 MG - Active AMBIEN (unknown strength) Not Available - Active ADDERALL (unknown strength) Not Available - Active OMEPRAZOLE (unknown strength) Not Available - Active SYNTHROID (unknown strength) Not Available - Active Refresh Optive 1 %-0.9 % eye gel drops 1 drop at bedtime both eyes - No Longer Active Refresh Optive Advanced (PF) 0.5 %-1 %-0.5 % eye drops in dropperette 1 drop 4 times per day both eyes - No Longer Active VITAMIN B-12 (unknown strength) Not Available - No Longer Active DYANAVEL XR (unknown [...] OFFICE/OUTPA TIENT VISIT, EST [facility], [address] [place] [address], [id number] tel:[phone] JARROD Omer cyst RUL 3 month(s) (chief complaint) Benign neoplasm of skin of right upper eyelid 0 Justin Bruner. [facility], [address] [place] [address], [id number]. tel:[phone] Other Provider: Hiren Mendez OD, [address], [address]. tel:[phone] erring Provider: Hiren Mendez OD, [address], [address]. 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 [facility], [address] [place] [address], [id number]. tel:[phone] Referring Provider: Hiren Mendez OD, [address], [address]. tel:[phone] [facility], [address] [place] [address], [place], [place], [id number] tel:[phone] JARROD [place] PresbyopiaDry eye syndrome of bilateral lacrimal glands 6 Alberto Reed. [facility], 7 Negra Rehman [place], [id number]. tel:[phone] [facility], 7 Negra Rehman MD, [id number] tel:+ [phone] JARROD [place] PresbyopiaPresb yopiaDiabetes Mellitus Type 2, Uncomplicated 5 Alberto Reed. [facility], 7 Negra Rehman MD, [id number]. tel:[phone] [facility], [address] [place], [id number] tel:+ [phone] JARROD [place] Presbyopia 4 Cayetano Denny. [facility], 7 Peggy Negra Mckoy MD, [id number]. tel:+ [phone] [facility], [address] [place], [id number] tel:+ [phone] JARROD [place] No Information 4 Ines Campos. [facility], [facility] Negra Rehman MD, [id number]. tel:+ [phone] OFFICE/OUTPA TIENT VISIT, [facility], [address] [place] Negra Mckoy MD, [id number] tel:+ [phone] JARROD [address] Superficial injury of cornea 1 Roselia Keith. [facility], 7 Negra Rehman MD, [id number]. tel:[phone] OFFICE/OUTPA TIENT VISIT, NEW [facility], 7 Negra Rehman MD, [id number] tel:+ [phone] JARROD Omer Pain in or around eyeSuperficial injury of cornea 2201 1 Alberto Reed. [facility], [address] [facility] [place], [id number]. tel:[phone] Family History Family Member Type Diagnosis Age At Onset Paternal grandmother Problem (finding) cataract Father Problem (finding) cataract Paternal grandfather Problem (finding) malignant neopl asm of lung Payers Payer name Insurance type Covered constitution party ID Authoriza tion(s) [facility] [id number] Social History Type Description Quantity Date Captured [...] neoplasm of skin of right upper eyelid Hidradenoma RUL Cond ition: new prob, addtl [...] days. 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 - updated glasses script given today Related to Presbyopia Dry eye syndrome, bi lateral OU Condition: [...] eval Related to Dry eye syndrome, bilateral - Return in 1-2 week s with Brianna Dominguez MD for DRY EYE EVAL Related to Dry eye syndrome, bilateral Diabetes Type II OU Condition: new prob, no addtl w/u needed. - Discussed exam, patient has healthy eyes, no diabetic damage seen today OU. Stressed blood sugar/blood pressure control to reduce risk of future progression. Eyes appear healthy, no WHEEL OF FORTUNE DEALER seen today. Will cont to monitor. Related to Diabetes Type II Presbyopia OU Condit ion: established, stable. - Educational materials provided: Discussed diagnosis with patient, new glasses rx given. Stable exam and will continue to monitor. 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 Related to Presbyopia Follow up - Return i n 1 year with Brianna Dominguez MD for Complete. Related to Presbyopia Presbyopia OU Condit ion: new prob, no addtl w/u needed. - Reading glasses ok, +1.00 DS. Call with vision changes. Related to Presbyopia Follow up - Return i n 1-2 with Eduin Monteiro OD for Complete. Related to Presbyopia Assessments Type Assessment Date assessment Benign neoplasm of skin of right upper eyelid impression Benign neoplasm of s kin of right upper eyelid: D23.111 Right. Condition: new problem, addtl w/u needed Patient Care Teams Name Effective Dates (start - stop) Status Members No Information
== END 2024-08-21 07:39 | disposition home or self-care (01) ==
LOC: ANHIMG 07:41
PROVIDERS: PCP Internal Medicine; Visit Provider Obstetrics & Gynecology
DX: Z12.31 Encounter for screening mammogram for malignant neoplasm of breast (principal); R92.8 Other abnormal and inconclusive findings on diagnostic imaging of breast
CPT/HCPCS: 77063; 77067

== ENCOUNTER 2024-09-22 13:04 | Outpatient (CLI) | payer OTHER, SELFPAY ==
--- NOTE | ~2024-09-22 | MMUS_ITS ---
EXAMINATION: MM diagnostic ignacio LT w corey, US breast LT limited HISTORY: Follow-up left breast mass TECHNIQUE: Additional 3-D tomosynthesis images of the left breast were performed and synthetic 2-D im ages were generated. CAD analysis was submitted and interpreted. High resolution Limited left breast ultrasound was performed. COMPARISON: Comparison to multiple prior studies sequentially, with oldest reviewed study dated 01/12. BREAST PARENCHYMAL COMPOSITION: Not dense: There are scattered areas of fibroglandular density. FINDINGS: MAMMOGRAPHIC FINDINGS: There is a small low-density mass located laterally in the left breast, middle third, at approximatel y 3:00 position. There is a low-density mass in the upper outer quadrant of the left breast, posterio r third, consistent with intramammary lymph node. No suspicious calcifications or architectural disto rtion. ULTRASOUND: Limited left breast ultrasound: At 2:00, 12 cm from the nipple an oval circumscribed parallel oriente d 6 mm mass with smooth margins, marginal vascularity and no posterior features. At 2:00, 12 cm from the nipple, there is a 4 mm intramammary lymph node. At 4:00, 4 cm from the nipple there is an oval h ypoechoic mass with suggestion of echogenic hilum and internal vascularity measuring 6 mm, likely a b enign intramammary lymph node. At 6:00, 3 cm from the nipple there is a 6 mm cyst. IMPRESSION: 1. Probable benign left breast masses. 2. Recommend 6 month follow-up diagnostic left mammogram and Limited left breast ultrasound. BI-RADS category 3, probably benign findings. Reviewed, dictated and finalized at location A. IMPRESSION: 1. Probable benign left breast masses. 2. Recommend 6 month follow-up diagnostic left mammogram and Limited left breas t ultrasound. BI-RADS category 3, probably benign findings.
--- OUTSIDE RECORDS SUMMARY | 2024-09-22 13:21 | XMS_ITS | Encounter Summary ---
Author Organization [facility] Address [address] [place] [address] Phone Care Team Providers Care Supervisor [employer] Name Role Phone Andrews Kent MD Primary Care Provider [phone] [phone] Reason for Visit * Reason Comments Medication Refill Encounter Details Date Type Department Care Team ([facility] st Contact Info) Description 04/27/2023 Refill [facility] - [place] [address] [place] [address] Andrews Kent MD [address] [place] [address] Medication Refill Social History Tobacco Use Types [...] Dept 12/27/22 Office Visit Andrews Kent MD [facility] [place] 06/27/22 [facility] Visit [facility] Showing recent visits within past 365 days and meeting all other requirements Future Appointments Date Type Provider Dept 06/27/23 Appointment Andrews Kent MD [facility] [place] Showing future appointments within next 90 days and meeting all other requirements Passed - No active on record Passed - No matching NSAID med order in past 45 days No matching medication orders between 03/15/2023 10:05 AM and 04/29/2023 10:05 AM documented in this encounter Plan of Treatment Upcoming Encounters Date Type Department Care Team (Late st Contact Info) Description 01/14/2025 9:40 AM CORE MACHINE OPERATOR Office Visit [facility] - Primary Care - [place] [address] [place] [address] Andrews Kent MD [address] [place] [address] documented as of this encounter Visit Diagnoses Not on filedocumented in this encounter Additional Health Concerns Assessment Noted Time PHQ-9 Depression Total Score: 0 06/08/19 21 1:00 PM CDT documented as of this encounter Care Teams Supervisor [employer] Relationship Specialty Start Date End Date Andrews Kent MD PCP - General Internal Medicine 03/30/19 documented as of this encounter
--- OUTSIDE RECORDS SUMMARY | 2024-09-22 13:21 | XMS_ITS | Encounter Summary ---
Author Organization [facility] Address [address] [place] [address] Phone Care Team Providers Care Halftone Operator Name Role Phone Andrews Kent MD Primary Care Provider [phone]- [phone] Reason for Visit * Reason Comments Medication Refill Encounter Details Date Type Department Care Team ([facility] st Contact Info) Description 12/05/2019 Refill [facility] - [place] [address] [place] [phone] Andrews Kent MD [address] [place] [address] Medication Refill Social History Tobacco [...] st Contact Info) Description 01/14/2025 9:40 AM CASER Office Visit [facility] - Primary Care - [place] [address] [place] [address] Andrews Kent MD [address] [place] [address] documented as of this encounter Visit Diagnoses Not on filedocumented in this encounter Care Teams Halftone Operator Relationship Specialty Start Date End Date Andrews Kent MD PCP - General Internal Medicine 03/30/19 documented as of this encounter
--- OUTSIDE RECORDS SUMMARY | 2024-09-22 13:21 | XMS_ITS | Clinical Summary ---
Author Organization [facility] Care Team Providers Care Typewriter Assembly And Parts Inspector Name Role Phone Andrews Kent MD Primary Care Provider [phone] Allergies No known active allergies Medications Ascorbic [...] Description 07/14/2024 8:00 AM CDT Office Visit [facility] - Internal Medicine [facility] [address] [place] [address] Andrews Kent MD Essential hypertension, benign (Primary Dx) Discharge Disposition: Discharged to home or Selfcare 07/14/2024 Travel from Last 3 Months Family History Medical [...] drink = 0.6 oz pur e alcohol) [facility] Utilities Answer Date Recorded In the past 12 months has e electric, gas, oil, or water company [...] any clubs o r organizations such as voodoo groups, unions, fraternal or athletic groups, or [...] Total Score - Questions 1-9 0 04/2024 [facility] [place] of Occupat ional Health - Occupational Stress [...] place to sleep or slept in a long term (including now)? No 06/25/2023 Education Answer Date [...] st Contact Info) Description 01/14/2025 9:40 AM ROOFING SUBCONTRACTOR [facility] - Primary Care - [address] [place] [address] Andrews Kent MD [address] [place] [id number] Health Maintenance Due Date Last Done Comments Hepatitis C Virus (HCV) Screening 1970 TdaP Immunization 1970 Hepatitis B Immunization (1 of 3 - 19+ 3-dose series) 1989 HPV/Cotest 2000 Colonoscopy 11/13/2015 Immunochemical Fecal Occult Blood 11/13/2015 Pneumococcal Immunization (5 0+ years) (1 of 1 - PCV) 2020 Zoster Immunization (1 of 2) 2020 SARS-COV-2 Immunization ( - season) 2023 Cervical Cancer Screening (CCS) 02/06/2025 Pap Smear 02/06/2025 02/06/2022, 07/25/2020 Mammogram 08/21/2025 08/21/2024, 11/28/2022, 09/27/2020 Cologuard 02/18/2027 02/19/2024, 12/23/2020 Colorectal Cancer Screening 02/18/2027 Respiratory Syncytial Virus (RSV) Immunization (Adult) (1 - 1-dose 75+ series) 2045 Discussion re Starting/Frequency of Mammograms Discontinued 08/21/2024, 11/28/2022, 09/27/2020 Human Papillomavirus (HPV) Immunization Aged Out No longer eligible based on patient's age to complete this topic Influenza Immunization Discontinued Meningococcal Immunization (ACWY) Aged Out No longer eligible based on patient's age to complete this topic Rotavirus Immunization Aged Out No lo nger eligible based on patient's age to complete this topic Procedures Procedure Name Priority Date/Time Associated Diagnosis Comments MAMMOGRAM BILATERAL GENERIC 08/21/2024 12:00 AM CDT PATHOLOGY SURGICAL 07/07/2024 12 :00 AM CDT UR TEST QUAL 07/07/2024 12:00 AM CDT OBG GYNE PROCEDURE 07/07/2024 12 :00 AM CDT BASIC METABOLIC PANEL W/ CALCIUM TOTAL 06/30/2024 12:00 AM CDT COLOGUARD Routine 02/19/2024 9:20 AM ROOFING SUBCONTRACTOR Screening for colorectal cancer from Last 3 Months or Most Recently Relevant to Health Maintenance Results * MAMMOGRAM BILATERAL GENERIC (08/21/2024 12:00 AM CDT) 08/21/2024 us Provider Scan IMG MAMMO ORDERABLES Final Resul t Performing Organization Address City/[facility] Co de Phone Number SCAN * OBG GYNE PROCEDURE (07/07/2024 12:00 AM CDT) 07/07/2024 us Provider Scan GEN ORDERS Final Result Performing Organization Address City/[facility]/ZIP Co de Phone Number SCAN * PATHOLOGY SURGICAL (07/07/2024 12:00 AM CDT) 07/07/2024 us Provider Scan PATHOLOGY/CYTOLOGY ORDERABLES Fi nal Result Performing Organization Address City/[facility]/ZIP Co de Phone Number SCAN * UR TEST QUAL (07/07/2024 12:00 AM CDT) 07/07/2024 us Provider Scan URINE ORDERABLES Final Result SCAN * BASIC METABOLIC PANEL W/ CALCIUM TOTAL (06/30/2024 12:00 AM CDT) 06/30/2024 us Provider Scan CHEMISTRY ORDERABLES Final Resul t Performing Organization Address City/[facility]/ZIP Co de Phone Number SCAN * COLOGUARD (02/19/2024 9:20 AM ROOFING SUBCONTRACTOR) Cologuard Negative Negative [facility] Comment: NEGATIVE TEST RESULT. A negative [...] (Prashanth Rios al, N Engl J Med 2014;370(14):2481-3863) The normal value (reference range) for this assay is negative. COLOGUARD RE-SCREENING RECOMMENDATION: Periodic colorectal cancer screening is an important part of preventive healthcare for asymptomatic individuals at average risk for colorectal cancer. Following a negative Cologuard result, the [place] Cancer Society and U.S. Multi-Society Task Force screening guidelines recommend a Cologuard re-screening interval of 3 years. References: [place] [employer] Guideline for Colorectal Cancer Screening: https://www.cancer.org/cancer/gmkyp-bffpuf-runxhw/ntrbwotpa-zuwufmbjr-nwmbnht/ acs-recommendations.html.; Natalio DK, Brock CR, Vivian KrishnamurthyK, Colorectal Cancer Screening: Recommendations for Physicians and Patients from the U.S. Multi-Society Task Force on Colorectal Cancer Screening , Am J Gastroenterology 2017; 112:4348-3852. TEST DESCRIPTION: Composite algorithmic analysis of stool [...] (Prashanth Rios al, N Engl J Med 2014;370(14):6315-2418.) Cologuard may produce a false negative or false positive result (no colorectal cancer or precancerous polyp present at colonoscopy follow up). A negative Cologuard test result does not guarantee the absence of CRC or advanced adenoma (pre-cancer). The current Cologuard screening interval is every 3 years. ([place] Cancer Society and U.S. Multi-Society Task Force). Cologuard performance data in a 10,000 patient pivotal study using colonoscopy as the reference method can be accessed at the following location: www.[employer]/results. Additional description of the Cologuard test process, warnings and precautions can be found at www.[employer].com. Stool 02/19/2024 9:20 AM ROOFING SUBCONTRACTOR 02/20/2024 8:10 AM ROOFING SUBCONTRACTOR Andrews Kent MD BODY FLUIDS & STOOLS ORDERA BLES Final Result [employer] [address] [place] [address], [employer] [address] [place] [address] from Last 3 Months or Most Recently Relevant to Health Maintenance Insurance OAP Care Teams Typewriter Assembly And Parts Inspector Relationship Specialty Start Date End Date Andrews Kent MD PCP - General Internal Medicine 03/30/19
--- OUTSIDE RECORDS SUMMARY | 2024-09-22 13:21 | XMS_ITS | Clinical Summary ---
Author Organization [facility] Address [address] [place] [address] Care Team Providers Care Safety Supervisor Name Role Phone Andrews Kent MD Primary Care Provider [phone]- [phone] Andrews Kent MD Unavailable [phone] Allergies No known active allergies Medications hydroCHLOROthia [...] Diagnosed Date Spell of visual disturbance 05/14/2018 Surgical History Surgery Date Site/Laterality Comments CHOLECYSTECTOMY [...] Vaccine (1 of 2) 2020 Influenza Vaccine (#1) 2024 Pneumococcal vaccine <65 Aged Out No longer eligible based on patient's age to complete this topic Insurance [facility] [id number] [facility] [id number] Member Subscriber Plan / Payer (Ef fective 2020-Present) Name:Brenda Johansen Member ID:[id number] Relation to Subscriber:Self Name:Brenda Johansen Subscriber ID:[id number] Payer ID:[id number] Type:[employer] HMO/PPO Address: [employer] CLAIMS [address] [place] [id number] Care Teams Safety Supervisor Relationship Specialty Start Date End Date Andrews Kent MD [address] [place] [address] PCP - General Internal Medicine 05/14/18 Andrews Kent MD [address] [place] [address] Internal Medicine 05/14/18
--- OUTSIDE RECORDS SUMMARY | 2024-09-22 13:21 | XMS_ITS | Encounter Summary ---
Author Organization [facility] Address [address] [place] [address] Phone Care Team Providers Care E Commerce Web Developer Name Role Phone Andrews Kent MD Primary Care Provider [phone]- [phone] Reason for Visit * Reason Comments Medication Refill Encounter Details Date Type Department Care Team ([facility] st Contact Info) Description 09/13/2022 Refill [facility] - [place] [address] [address] Candy Jimenez, [facility] [address] [place] [address] Medication Refill Social History Tobacco Use Types [...] st Contact Info) Description 01/14/2025 9:40 AM RADIATOR CLEANER Office Visit [facility] - Primary Care - [place] [address] [place] [address] Andrews Kent MD [address] [place] [address] documented as of this encounter Visit Diagnoses Not on filedocumented in this encounter Additional Health Concerns Assessment Noted Time PHQ-9 Depression Total Score: 0 06/08/19 21 1:00 PM CDT documented as of this encounter Care Teams E Commerce Web Developer Relationship Specialty Start Date End Date Andrews Kent MD PCP - General Internal Medicine 03/30/19 documented as of this encounter
--- OUTSIDE RECORDS SUMMARY | 2024-09-22 13:21 | XMS_ITS | Encounter Summary ---
Author Organization [facility] Address [address] [place] [address] Phone Care Team Providers Care Jigger Crown Pouncing Machine Operator Name Role Phone Andrews Kent MD Primary Care Provider [phone]- [phone] Reason for Visit * Reason Comments Medication Refill Encounter Details Date Type Department Care Team ([facility] st Contact Info) Description 01/20/2022 Refill [facility] [address] [place] [address] Andrews Kent MD [address] [place] [address] Medication Refill Social History Tobacco [...] Coronavirus/COVID-19? No / Unsure 12/28/2021 8:20 AM PUPPET MAKER documented as of this encounter Miscellaneous Notes [...] 12/28/21 Office Visit Andrews Kent MD [facility] 06/22/21 [facility] Show[facility] recent visits within past 365 days and meeting all other requirements Future Appointments No visits were found meeting these conditions. Showing future appointments within next 90 days and meeting all other requirements ET MAKER documented in this encounter Plan of Treatment Upcoming Encounters Date Type Department Care Team (Late st Contact Info) Description 01/14/2025 9:40 AM PUPPET MAKER Office Visit [facility] - Primary Care - [place] [address] [place] [address] Andrews Kent MD [address] [place] [address] documented as of this encounter Visit Diagnoses Not on filedocumented in this encounter Additional Health Concerns Assessment Noted Time PHQ-9 Depression Total Score: 0 06/08/19 21 1:00 PM CDT documented as of this encounter Care Teams Jigger Crown Pouncing Machine Operator Relationship Specialty Start Date End Date Andrews Kent MD PCP - General Internal Medicine 03/30/19 documented as of this encounter
--- OUTSIDE RECORDS SUMMARY | 2024-09-22 13:21 | XMS_ITS | Encounter Summary ---
Author Organization [facility] Address [address] [place] [address] Phone Care Team Providers Care Internet Marketing Director Name Role Phone Andrews Kent MD Primary Care Provider [phone] Reason for Visit * Reason Comments Medication Refill Encounter Details Date Type Department Care Team ([facility] Contact Info) Description 10/26/2019 Refill [facility] [address] [place] [address] Andrews Kent MD [address] [place] [address] Medication Refill Social History Tobacco [...] st Contact Info) Description 01/14/2025 9:40 AM MANAGER GROCERY Office Visit [facility] - Primary Care - [place] [address] [place] [address] Andrews Kent MD [address] [place] [address] documented as of this encounter Visit Diagnoses Not on filedocumented in this encounter Care Teams Internet Marketing Director Relationship Specialty Start Date End Date Andrews Kent MD PCP - General Internal Medicine 03/30/19 documented as of this encounter
--- OUTSIDE RECORDS SUMMARY | 2024-09-22 13:21 | XMS_ITS | Encounter Summary ---
Author Organization [facility] Address [address] [place] [address] Phone Care Team Providers Care Redeye Gunner Name Role Phone Andrews Kent MD Primary Care Provider [phone] Reason for Visit * Reason Comments Medication Refill Encounter Details Date Type Department Care Team ([facility] st Contact Info) Description 06/15/2022 Refill [facility] - Internal Medicine - [place] [address] [place] [id number] Andrews Kent MD [address] [place] [address] Medication Refill Social History Tobacco [...] 12/28/21 Office Visit Andrews Kent MD [facility] [place] 06/22/21 Office Visit Andrews Kent MD [facility] [place] Showing recent visits within past 365 days and meeting all other requirements Future Appointments Date Type Provider Dept 06/27/22 Appointment Andrews Kent MD [facility] [place] Showing future appointments within next 90 days and meeting all other requirements Passed - No active on record documented in this encounter Plan of Treatment Upcoming Encounters Date Type Department Care Team (Late st Contact Info) Description 01/14/2025 9:40 AM [employer]ER[employer] Office Visit [facility] - [facility] - [place] [address] [place] [phone] Andrews Kent MD [address] [place] [address] documented as of this encounter Visit Diagnoses Not on filedocumented in this encounter Additional Health Concerns Assessment Noted Time PHQ-9 Depression Total Score: 0 06/08/19 21 1:00 PM CDT documented as of this encounter Care Teams Redeye Gunner Relationship Specialty Start Date End Date Andrews Kent MD PCP - General Internal Medicine 03/30/19 documented as of this encounter
== END 2024-09-22 13:05 | disposition home or self-care (01) ==
LOC: ANHIMG 13:04
PROVIDERS: PCP Internal Medicine; Visit Provider Obstetrics & Gynecology
DX: R92.8 Other abnormal and inconclusive findings on diagnostic imaging of breast (principal)
CPT/HCPCS: 76642; 77061; 77065; G0279